=== PATIENT | male | born 1960 | race American Indian/Alaskan Native ===

== ENCOUNTER 2016-04-27 05:54 | Emergency (ER) | payer BC ==
[2016-04-27 07:12] LABS: Basophils % (Auto) 0.7 % (0.0-1.8); Hematocrit 39.8 % (35.5-45.6); Hemoglobin 13.2 gm/dl (11.8-15.2); Mean Corpuscular HGB Conc 33 % (32-34); Mean Corpuscular Hemoglobin 28 pg (28-32); Mean Corpuscular Volume 84 fl (84-94); Platelet Count 328 K/mm3 (140-440); Red Blood Count 4.77 M/mm3 (3.65-5.03); Red Cell Distribution Width 14.2 % (13.2-15.2); White Blood Count 6.5 K/mm3 (4.5-11.0)
[2016-04-27 07:25] LABS: Anion Gap 18 mmol/L; BUN/Creatinine Ratio 13.75; Blood Urea Nitrogen 11 mg/dL (9-20); Calcium 10.2 mg/dL (8.4-10.2); Carbon Dioxide 23 mmol/L (22-30); Chloride 105.4 mmol/L (98-107); Glucose 118 mg/dL (75-100); Potassium 3.9 mmol/L (3.6-5.0); Sodium 142 mmol/L (137-145)
[2016-04-27] MEDS ORDERED: NACL 0.9% 1000 ML 1,000 ML IV ONE (07:26)
[2016-04-27] MEDS ORDERED: CARDIZEM IV ONE (07:26)
--- NOTE | 2016-04-27 07:31 | Emergency Department Report ---
ED General Adult HPI - General Chief complaint: Dyspnea/Respdistress Stated complaint: LIANNE Time Seen by Provider: 04/27/16 07:17 Source: patient Mode of arrival: Ambulatory Limitations: No Limitations - History of Present Illness Initial comments: 55-year-old male presents to the emergency department complaining of lightheadedness and shortness of breath. Patient states for the past 2 days he has been having shortness of breath and lightheadedness. Patient describes his lightheadedness as feeling "off". He denies passing out or a spinning sensation. He denies chest pain, nausea, vomiting, or headache. He does state that approximately 10 days ago he had an episode of food poisoning. He reports vomiting multiple times that day. Since that time he states his equilibrium has been off. He does state that this is improving on a daily basis. Patient also reports he was recently diagnosed with an irregular heartbeat. He was prescribed Eliquis, but states he has been out of it for the past 2 weeks. There are no other complaints. -: Gradual, days(s) (2) Consistency: constant Improves with: none Worsens with: none Associated Symptoms: confusion, shortness of breath Treatments Prior to Arrival: none - Related Data Home Medications Medication Instructions Recorded Confirmed Last Taken Apixaban [Eliquis] 5 mg PO BID 04/27/16 04/27/16 Unknown Previous Rx's Medication Instructions Recorded Last Taken Type Metoprolol Tartrate [Lopressor] 50 mg PO BID #60 tablet 04/27/16 Unknown Rx Allergies Allergy/AdvReac Type Severity Reaction Status Date / Time No Known Allergies Allergy Verified 04/27/16 05:57 ED Review of Systems ROS: Stated complaint: LIANNE Other details as noted in HPI Comment: All other systems reviewed and negative Respiratory: shortness of breath Neurological: as per HPI, confusion ED Past Medical Hx - Past Medical History Previous Medical History?: Yes Additional medical history: SARCODOSIS / SLEEP APNEA / IRREGULAR HEART BEAT - Surgical History Past Surgical History?: Yes Additional Surgical History: FEMUR - Family History Family history: no significant - Social History Smoking Status: Never Smoker Substance Use Type: None - Medications Home Medications: Home Medications Medication Instructions Recorded Confirmed Last Taken Type Apixaban [Eliquis] 5 mg PO BID 04/27/16 04/27/16 Unknown History Metoprolol Tartrate [Lopressor] 50 mg PO BID #60 tablet 04/27/16 Unknown Rx ED Physical Exam - General Limitations: No Limitations General appearance: alert, in no apparent distress - Head Head exam: Present: atraumatic, normocephalic - Eye Eye exam: Present: normal appearance, PERRL, EOMI - ENT ENT exam: Present: normal exam, normal orophraynx, mucous membranes moist - Neck Neck exam: Present: normal inspection, full ROM. Absent: tenderness - Respiratory Respiratory exam: Present: normal lung sounds bilaterally. Absent: respiratory distress - Cardiovascular Cardiovascular Exam: Present: tachycardia, irregular rhythm, normal heart sounds - GI/Abdominal GI/Abdominal exam: Present: soft, normal bowel sounds. Absent: distended, tenderness - Extremities Exam Extremities exam: Present: normal inspection, full ROM. Absent: tenderness - Back Exam Back exam: Present: normal inspection, full ROM. Absent: tenderness - Neurological Exam Neurological exam: Present: alert, oriented X3. Absent: motor sensory deficit - Skin Skin exam: Present: warm, dry, intact ED Course Vital Signs 04/27/16 04/27/16 04/27/16 05:57 06:52 07:00 Temperature 98.0 F Pulse Rate 69 124 H 138 H Respiratory 22 20 16 Rate Blood Pressure 152/113 119/90 Blood Pressure [Left] O2 Sat by Pulse 97 96 Oximetry 04/27/16 04/27/16 04/27/16 07:10 07:20 07:30 Temperature Pulse Rate 140 H 140 H 126 H Respiratory 14 13 20 Rate Blood Pressure 126/94 125/82 125/82 Blood Pressure [Left] O2 Sat by Pulse 96 97 97 Oximetry 04/27/16 04/27/16 04/27/16 07:35 07:40 07:51 Temperature Pulse Rate 126 H 115 H 113 H Respiratory 18 17 18 Rate Blood Pressure 132/85 Blood Pressure 132/85 [Left] O2 Sat by Pulse 99 97 96 Oximetry 04/27/16 04/27/16 04/27/16 08:01 08:11 08:21 Temperature Pulse Rate 119 H 116 H 128 H Respiratory 18 17 14 Rate Blood Pressure 134/98 134/98 134/98 Blood Pressure [Left] O2 Sat by Pulse 96 95 97 Oximetry 04/27/16 04/27/16 04/27/16 08:31 08:41 08:51 Temperature Pulse Rate 114 H 115 H 118 H Respiratory 11 L 15 12 Rate Blood Pressure 134/98 134/98 134/98 Blood Pressure [Left] O2 Sat by Pulse 99 95 97 Oximetry 04/27/16 04/27/16 04/27/16 09:00 09:11 09:21 Temperature Pulse Rate 118 H 123 H 114 H Respiratory 11 L 16 13 Rate Blood Pressure 143/96 143/96 143/96 Blood Pressure [Left] O2 Sat by Pulse 96 98 95 Oximetry 04/27/16 04/27/16 04/27/16 09:31 09:32 09:41 Temperature Pulse Rate 124 H 124 H 116 H Respiratory 13 10 L Rate Blood Pressure 143/96 142/98 143/96 Blood Pressure [Left] O2 Sat by Pulse 95 96 Oximetry 04/27/16 04/27/16 04/27/16 09:51 10:00 10:11 Temperature Pulse Rate 120 H 111 H 117 H Respiratory 17 10 L 12 Rate Blood Pressure 143/96 127/102 127/102 Blood Pressure [Left] O2 Sat by Pulse 95 97 97 Oximetry 04/27/16 10:21 Temperature Pulse Rate 109 H Respiratory 10 L Rate Blood Pressure 127/102 Blood Pressure [Left] O2 Sat by Pulse 97 Oximetry ED Medical Decision Making - Lab Data Result diagrams: 04/27/16 06:51 04/27/16 06:51 - EKG Data -: EKG Interpreted by Me EKG shows normal: axis, QRS complexes, ST-T waves Rate: tachycardia - EKG Data When compared to previous EKG there are: previous EKG unavailable Interpretation: other (atrial fibrillation with rapid ventricular response) - Radiology Data Radiology results: image reviewed interpreted by me: Chest x-ray shows no acute cardiopulmonary abnormality. - Medical Decision Making Lab and imaging results reviewed and discussed with the patient. Patient's heart rate has improved markedly with medication. Cardiology has seen and evaluated the patient emergency department. Patient will be discharged home on oral metoprolol to follow-up in their office. - Differential Diagnosis A. fib with RVR, dehydration, electrolyte abnormality, ACS Critical care attestation.: If time is entered above; I have spent that time in minutes in the direct care of this critically ill patient, excluding procedure time. ED Disposition Clinical Impression: Atrial fibrillation with rapid ventricular response Disposition: DISCHARGED TO HOME OR SELFCARE Is pt being admited?: No Condition: Stable Instructions: Atrial Fibrillation (ED) Prescriptions: Metoprolol Tartrate [Lopressor] 50 mg PO BID #60 tablet Referrals: SOFIA SALAZAR MD [Staff Physician] - 05/10/16 Time of Disposition: 10:41
--- NOTE | 2016-04-27 07:46 | Admit Criteria Form ---
Admission Criteria Documentation: ATRIAL FIBRILLATION Clinical Indications for Admission to Inpatient Care (Place 'X' for any and all applicable criteria): Admission indicated for ANY ONE of the following(1)(2)(3)(4)(5) : [ ]I. Myocardial ischemia [X]II. Dyspnea or hypoxemia [ ]III. Hemodynamic instability [ ]IV. Heart failure (e.g., pulmonary edema) (7) [ ]V. New-onset (less than 48 hours) atrial fibrillation with high risk for causing complications secondary to comorbidities (eg, symptomatic heart failure ) [ ]. Altered mental status [ ]VII. Syncope [ ]VIII. Patient has implantable cardioverter defibrillator that has fired more than once within past 24hr or needs immediate adjustment of settings that cannot be done other than in inpatient setting. (8) [ ]IX. Suspected accessory pathway (e.g., Yluej-Hdjzhqkea-Plkwb syndrome) on ECG [ ]X. Recent systemic thromboembolism (eg, stroke) [ ]XI. Medication toxicity (e.g., digitalis) causing arrhythmia(9) [ ]XII. Underlying medical condition that necessitates inpatient care (e.g., thyrotoxicosis, pneumonia) (10) [ ]XIII. Continuous ECG monitoring is required for condition causing arrhythmia (e.g., severe hyperkalemia, hypokalemia, acid-base disturbance).(11)(12)(13) [ ]XIV. Initiation of antiarrhythmic drug therapy is needed in patient at high risk of adverse effects as indicated by ANY ONE of the following: [ ]a) Significant structural heart disease (e.g., reduced ejection fraction, congenital heart disease, valvular heart disease) [ ]b) Prolonged QT interval [ ]c) Underlying sinus node or atrioventricular conduction disturbances [ ]d) Need for treatment with antiarrhythmic drugs that have significant proarrhythmic potential (e.g., dofetilide, sotalol, procainamide) [ ]e) Patient whose sinus rhythm has never been observed on ECG [ ]XV. Intolerable symptoms despite optimal outpatient treatment [ ]XVI. Elective or urgent cardioversion that cannot be performed on outpatient basis or during observation care. [A] (Use also Atrial Fibrillation: Observation Care ) as appropriate.(14) [ ]XVII.Contraindications and/or Inappropriate clinical situations for Observational Care in patients with Atrial Fibrillation, when ANY ONE of the following is required: [ ]a) Patient with High risk of cardiac embolism (e.g, patients with previous cardiac embolism, LVEF < 40%, age >75 and patients with prosthetic valve) 18 [ ]b) Patient with Moderate risk including DM patient, CAD and patient aged 65-75 18 [ ]c) Patient with any change in cardiac biomarker especially troponin should be managed as high risk in an inpatient setting 19 [ ]d) Physician judgement irrespective of ECG and other diagnostic findings 20 [ ]XVIII.General contraindications and/or Inappropriate clinical situations for Observational Care in patients with Atrial Fibrillation, when ANY ONE of the following is required: [ ]a) Prediction of prolongation of LOS based on ANY ONE of the following may be considered as a contraindication for observational care 2, 3, 4, 5, 6, 7, 8, 9, 10, 11 [ ]i) Age > 65 yrs. [ ]ii) Patient arriving by ambulance [ ]iii) Patient with high acuity [ ]iv) Patient requiring vital sign monitoring [ ]v) Patient on IV medication [ ]b) Systolic blood pressures 180mmHg 3,12 [ ]c) Patient with altered mental status including delirium and other alteration of consciousness3 [ ]d) Patient whose discharge disposition will be to a penitentiary home or rehabilitation home should not be managed in Emergency Department Observation Unit. CMS rule requires 3 days hospital stay before such placement.3,13 [ ]e) Patient with failure to thrive due to broad array of etiologies 3,16,17 [ ]f) Inability to ambulate 3,14 Extended stay beyond goal length of stay may be needed for (1)(25)(26): [ ]a) Unstable comorbidities [ ]b) Persistently uncontrolled atrial fibrillation or other arrhythmias [ ]c) Acute thromboembolic event (e.g., stroke, limb ischemia) [ ]d) Need for inpatient attainment of full anticoagulation The original [employer] content created by [employer] has been revised. The portions of the content which have been revised are identified through the use of italic text or in bold, and [employer] has neither reviewed nor approved the modified material. All other unmodified content is copyright [employer]. Please see references footnoted in the original [employer] edition 2016
--- NOTE | 2016-04-27 07:51 | XRay Report ---
ROUTINE CHEST, TWO VIEWS: HISTORY: Shortness of breath. No recent comparison. Mild cardiomegaly and central pulmonary venous congestion are identified. No consolidation, pleural effusion or pneumothorax is appreciated. Mild thoracic spondylosis. IMPRESSION: Mild cardiomegaly and pulmonary venous congestion but no CHF.
[2016-04-27] MEDS ORDERED: LOPRESSOR PO ONE (09:12)
--- NOTE | 2016-04-27 09:14 | Consultation ---
History of Present Illness Consult date: 04/27/16 Requesting physician: JASPREET ARGUELLES Consult reason: atrial fibrillation History of present illness: The patient is a 55 year old male with a history of atrial fibrillation, JOSE who presented with complaints of lightheadedness and shortness of breath ongoing for the past several days. He denies any chest pain, palpitations, nausea, vomiting, diaphoresis or syncope. EKG in the ER showed atrial fibrillation with HR 150s. He states he was diagnosed with atrial fibrillation by Dr. Middleton last month and placed on Eliquis. Per Dr. Middleton's office note, pt. was supposed to have been on cardizem CD 240 mg daily but the patient ever taking anything but Eliquis. He received 10mg IV cardizem in the ER with improvement in his HR and symptoms. Echo done 02/2016 showed mild LVH, EF 25-30% , mild MR. No previous ischemic evaluation. Past History Past Medical History: atrial fib, other (JOSE, obesity) Past Surgical History: Other (femur repair) Social history: . denies: smoking, alcohol abuse, prescription drug abuse, IV drug use Family history: no significant family history Medications and Allergies Allergies Allergy/AdvReac Type Severity Reaction Status Date / Time No Known Allergies Allergy Verified 04/27/16 05:57 Home Medications Medication Instructions Recorded Confirmed Last Taken Type Apixaban [Eliquis] 5 mg PO BID 04/27/16 04/27/16 Unknown History Metoprolol Tartrate [Lopressor] 50 mg PO BID #60 tablet 04/27/16 Unknown Rx Review of Systems Constitutional: no fever, no chills Ears, nose, mouth and throat: no nasal congestion, no nasal discharge, no sinus pressure Cardiovascular: lightheadedness, shortness of breath, no chest pain, no palpitations Respiratory: shortness of breath, no cough, no dyspnea on exertion, no congestion, no wheezing Gastrointestinal: no abdominal pain, no nausea, no vomiting, no diarrhea Genitourinary Male: no dysuria, no hematuria Musculoskeletal: no neck stiffness, no neck pain, no myalgias Integumentary: no rash, no pruritis Neurological: no parathesias, no numbness, no tingling, no headaches Endocrine: no cold intolerance, no heat intolerance Hematologic/Lymphatic: no easy bruising, no easy bleeding Allergic/Immunologic: no urticaria, no wheezing Physical Examination Vital Signs Temp Pulse Resp BP Pulse Ox 98.0 F 69 22 152/113 97 04/27/16 05:57 04/27/16 05:57 04/27/16 05:57 04/27/16 05:57 04/27/16 05:57 General appearance: no acute distress, obese HEENT: Positive: Normocephaly, Mucus Membranes Moist Neck: Positive: neck supple, trachea midline Cardiac: Positive: irregularly irregular, S1/S2 Lungs: Positive: clear to auscultation Neuro: Positive: Grossly Intact Abdomen: Positive: Soft, Active Bowel Sounds. Negative: Tender Skin: Positive: Clear. Negative: Rash Extremities: Absent: edema Results 04/27/16 06:51 04/27/16 06:51 CBC 04/27/16 Range/Units 06:51 WBC 6.5 (4.5-11.0) K/mm3 RBC 4.77 (3.65-5.03) M/mm3 Hgb 13.2 (11.8-15.2) gm/dl Hct 39.8 (35.5-45.6) % Plt Count 328 (140-440) K/mm3 Lymph # 1.4 (1.2-5.4) K/mm3 [place] # 0.9 H (0.0-0.8) K/mm3 Eos # 0.1 (0.0-0.4) K/mm3 Baso # 0.0 (0.0-0.1) K/mm3 Comprehensive Metabolic Panel 04/27/16 Range/Units 06:51 Sodium 142 (137-145) mmol/L Potassium 3.9 (3.6-5.0) mmol/L Chloride 105.4 (98-107) mmol/L Carbon Dioxide 23 (22-30) mmol/L BUN 11 (9-20) mg/dL Creatinine 0.8 (0.8-1.5) mg/dL Glucose 118 H (75-100) mg/dL Calcium 10.2 (8.4-10.2) mg/dL - Imaging and Cardiology Echo: report reviewed (02/2016: mild LVH, EF 25-30%, mild MR) EKG: image reviewed EKG interpretations - Telemetry EKG Rhythm: Atrial Fibrillation - EKG Supraventricular dysrhythmia: atrial fibrillation Assessment and Plan Atrial fibrillation with RVR-->currently controlled ventricular rate electrolytes, TSH WNL Echo 02/2016: mild LVH, EF 25-30%, mild MR continue Eliquis 5mg PO BID initiate metoprolol 50mg BID Cardiomyopathy EF 25-30%-->new diagnosis currently compensated ?possibly tachycardia induced initiate metoprolol consider starting ACEI/entresto as an OP JOSE Obesity HR and symptoms improved with PO metoprolol 50mg. D/c home on metoprolol 50mg BID and Eliquis 5mg BID. Follow up with Dr. Middleton in the [place] office on 05/10/16 at 10:45 am. The patient has been seen in conjunction with Dr. Hoyt who agrees with the assessment and plan of care.
[2016-04-27] MEDS ORDERED: ELIQUIS PO SCH (10:00)
[2016-04-27 11:12] VITALS: BP 142/100
== END 2016-04-27 11:11 | disposition home or self-care (01) ==
LOC: ED 05:54
DX: I48.91 Unspecified atrial fibrillation (principal); R41.0 Disorientation, unspecified; Z79.01 Long term (current) use of anticoagulants
CPT/HCPCS: 36415; 71020; 80048; 83735; 84443; 84484; 85025; 93005; 93010; 96361; 96374; 99284; J7030

== ENCOUNTER 2016-05-05 23:12 | Inpatient (IN) | payer BC ==
[2016-05-06 00:10] LABS: Basophils % (Auto) 0.7 % (0.0-1.8); Hematocrit 42.6 % (35.5-45.6); Hemoglobin 13.9 gm/dl (11.8-15.2); Mean Corpuscular HGB Conc 33 % (32-34); Mean Corpuscular Hemoglobin 28 pg (28-32); Mean Corpuscular Volume 86 fl (84-94); Platelet Count 338 K/mm3 (140-440); Red Blood Count 4.94 M/mm3 (3.65-5.03); White Blood Count 7.6 K/mm3 (4.5-11.0)
[2016-05-06] MEDS ORDERED: CARDIZEM IV ONE (00:45)
[2016-05-06 00:49] LABS: Anion Gap 20 mmol/L; Blood Urea Nitrogen 17 mg/dL (9-20); Calcium 9.7 mg/dL (8.4-10.2); Carbon Dioxide 22 mmol/L (22-30); Chloride 102.2 mmol/L (98-107); Glucose 119 mg/dL (75-100); Potassium 4.1 mmol/L (3.6-5.0); Sodium 140 mmol/L (137-145)
--- NOTE | 2016-05-06 00:50 | Emergency Department Report ---
ED Shortness of Breath HPI - General Chief Complaint: Dyspnea/Respdistress Stated Complaint: PROBLEM BREATHING Time Seen by Provider: 05/05/16 23:59 Source: patient Mode of arrival: Ambulatory Limitations: No Limitations - History of Present Illness Initial Comments: 55-year-old male presents to the emergency department complaining of shortness of breath. Patient states he's been having difficulty breathing for the past 3 weeks with cough for the past 2 days. Cough has been nonproductive. He denies chest pain or other symptoms. Patient states he has been unable to sleep at night over the past couple of days. Patient has been seen in the emergency department to previous times this month for same complaints. On his initial visit, the patient was started on 50 mg of metoprolol twice a day. At his second visit, his dose was increased to 100 mg twice a day. He is scheduled to see cardiology on 05/10/2016. MD Complaint: shortness of breath, cough -: Gradual, week(s) (3) Pain Scale: 0 Consistency: constant Improves With: nothing Worsens With: nothing Known History Of: other (sarcoidosis, sleep apnea) Associated Symptoms: denies other symptoms Treatments Prior to Arrival: none - Related Data Home Medications Medication Instructions Recorded Confirmed Last Taken Apixaban [Eliquis] 5 mg PO BID 04/27/16 04/27/16 Unknown Previous Rx's Medication Instructions Recorded Last Taken Type Metoprolol Tartrate [Lopressor] 50 mg PO BID #60 tablet 04/27/16 Unknown Rx Metoprolol [Lopressor TAB] 100 mg PO BID #60 tablet 05/02/16 Unknown Rx Allergies Allergy/AdvReac Type Severity Reaction Status Date / Time No Known Allergies Allergy Verified 05/02/16 11:21 ED Review of Systems ROS: Stated complaint: PROBLEM BREATHING Other details as noted in HPI Comment: All other systems reviewed and negative Respiratory: cough, shortness of breath ED Past Medical Hx - Past Medical History Previous Medical History?: Yes Additional medical history: SARCOIDOSIS / SLEEP APNEA / ATRIAL FIB - Surgical History Past Surgical History?: Yes Additional Surgical History: FEMUR BILATERAL - Family History Family history: no significant - Social History Smoking Status: Never Smoker Substance Use Type: None - Medications Home Medications: Home Medications Medication Instructions Recorded Confirmed Last Taken Type Apixaban [Eliquis] 5 mg PO BID 04/27/16 04/27/16 Unknown History Metoprolol Tartrate [Lopressor] 50 mg PO BID #60 tablet 04/27/16 Unknown Rx Metoprolol [Lopressor TAB] 100 mg PO BID #60 tablet 05/02/16 Unknown Rx ED Physical Exam - General Limitations: No Limitations General appearance: alert, in no apparent distress - Head Head exam: Present: atraumatic, normocephalic - Eye Eye exam: Present: normal appearance, PERRL, EOMI - ENT ENT exam: Present: normal exam, normal orophraynx, mucous membranes moist - Neck Neck exam: Present: normal inspection, full ROM. Absent: tenderness - Respiratory Respiratory exam: Present: normal lung sounds bilaterally. Absent: respiratory distress - Cardiovascular Cardiovascular Exam: Present: tachycardia, irregular rhythm, normal heart sounds - GI/Abdominal GI/Abdominal exam: Present: soft, normal bowel sounds. Absent: distended, tenderness - Extremities Exam Extremities exam: Present: normal inspection, full ROM. Absent: tenderness - Back Exam Back exam: Present: normal inspection, full ROM. Absent: tenderness - Neurological Exam Neurological exam: Present: alert, oriented X3. Absent: motor sensory deficit - Skin Skin exam: Present: warm, intact, diaphoretic ED Course Vital Signs 05/05/16 05/05/16 05/06/16 23:22 23:52 01:08 Temperature 98.1 F 97.9 F Pulse Rate 74 138 H 127 H Respiratory 30 H 20 Rate Blood Pressure 148/100 Blood Pressure 153/115 145/107 [Right] O2 Sat by Pulse 97 92 Oximetry ED Medical Decision Making - Lab Data Result diagrams: 05/05/16 00:00 05/05/16 00:00 - EKG Data -: EKG Interpreted by Me EKG shows normal: axis, intervals, QRS complexes, ST-T waves Rate: tachycardia - EKG Data When compared to previous EKG there are: no significant change Interpretation: unchanged when compared t (05/02/2016), other (atrial fibrillation with rapid ventricular response) - Radiology Data Radiology results: image reviewed interpreted by me: Chest x-ray shows slightly increased vascular markings compared to previous. No pleural effusions noted. - Medical Decision Making Lab and imaging results reviewed and discussed with the patient. Patient's heart rate has improved into the low 90s following IV diltiazem. Patient has also been given 40 mg of IV Lasix. I have spoken with Dr. Walker, cardiology. Patient is to be admitted by the hospitalist. - Differential Diagnosis atrial fibrillation with RVR, CHF Critical care attestation.: If time is entered above; I have spent that time in minutes in the direct care of this critically ill patient, excluding procedure time. ED Disposition Clinical Impression: Atrial fibrillation with rapid ventricular response CHF (congestive heart failure) Qualifiers: Congestive heart failure type: systolic Congestive heart failure chronicity: acute on chronic Qualified Code(s): I50.23 - Acute on chronic systolic ( congestive) heart failure Disposition: OP ADMITTED IP TO THIS HOSP Is pt being admited?: Yes Condition: Stable Referrals: SOFIA SALAZAR MD [Primary Care Provider] - 3-5 Days Time of Disposition: 01:24
[2016-05-06] MEDS ORDERED: LASIX IV ONE (01:05)
--- NOTE | 2016-05-06 01:30 | History and Physical Report ---
History of Present Illness Chief complaint: I cant breathe History of present illness: 55 YO Male with Metabolic Syndrome, Obesity, JOSE, Atrial Fib with RVR, Sarcoidosis, presents to ED for evaluation. Pt complains of cough, and shortness of breath. Pt states that he has been experiencing symptoms for the past 3 weeks, but symptoms have worsened over the past two days. Pt acknowledges orthopnea, PND, bilateral leg swelling. Pt denies fever, chills, CP , Palpitations, NVD, Recent ill contacts. Pt has been evaluated in ED for similar symptoms twice in the recent past. Past History Past Medical History: other (Atrial Fib, JOES, Metabolic Syndrome, Sarcoidism, ) Past Surgical History: Other (Bilateral Femur) Social history: , lives with family. denies: smoking, alcohol abuse, prescription drug abuse Family history: diabetes, hypertension Medications and Allergies Allergies Allergy/AdvReac Type Severity Reaction Status Date / Time No Known Allergies Allergy Verified 05/02/16 11:21 Home Medications Medication Instructions Recorded Confirmed Last Taken Type Apixaban [Eliquis] 5 mg PO BID 04/27/16 04/27/16 Unknown History Metoprolol Tartrate [Lopressor] 50 mg PO BID #60 tablet 04/27/16 Unknown Rx Metoprolol [Lopressor TAB] 100 mg PO BID #60 tablet 05/02/16 Unknown Rx Review of Systems All systems: negative Cardiovascular: chest pain Exam - Constitutional Vitals: Temp Pulse Resp BP Pulse Ox 97.9 F 88 25 H 126/86 94 05/05/16 23:52 05/06/16 01:15 05/06/16 01:15 05/06/16 01:15 05/06/16 01:15 General appearance: Present: mild distress - EENT Eyes: Present: PERRL ENT: hearing intact, clear oral mucosa - Neck Neck: Present: supple, normal ROM - Respiratory Respiratory effort: normal Respiratory: bilateral: diminished - Cardiovascular Heart Sounds: Present: S1 & S2. Absent: rub, click - Extremities Extremities: pulses symmetrical, No edema Extremity abnormal: edema Peripheral Pulses: within normal limits - Abdominal General gastrointestinal: Present: soft, non-tender, non-distended, normal bowel sounds Male genitourinary: Present: normal - Integumentary Integumentary: Present: clear, warm, dry - Musculoskeletal Musculoskeletal: gait normal, strength equal bilaterally - Psychiatric Psychiatric: appropriate mood/affect, intact judgment & insight - Neurologic Neurologic: CNII-XII intact, moves all extremities Results - Labs CBC & Chem 7: 05/05/16 00:00 05/05/16 00:00 Labs: Abnormal lab results 05/05/16 05/05/16 05/05/16 Range/Units 00:00 00:00 00:00 [place] % (Auto) 12.9 H (0.0-7.3) % [place] # 1.0 H (0.0-0.8) K/mm3 Glucose 119 H (75-100) mg/dL NT-Pro-B Natriuret Pep 4958 H (0-900) pg/mL Assessment and Plan - Patient Problems (1) CHF (congestive heart failure) Current Visit: Yes Status: Acute Qualifiers: Congestive heart failure type: systolic Congestive heart failure chronicity : acute on chronic Qualified Code(s): I50.23 - Acute on chronic systolic ( congestive) heart failure Plan to address problem: Cardiology consulted: Echo, serial cardiac enzymes, ekg, telemetry, fluid restriction, uop q shift, low sodium diet, (2) Metabolic syndrome Current Visit: Yes Status: Acute Plan to address problem: Pt counseled, (3) Acute respiratory failure Current Visit: Yes Status: Acute Qualifiers: Respiratory failure complication: R Plan to address problem: supplemental oxygen, nebs, NIPPV as clinically indicated, supportive care. (4) Atrial fibrillation with rapid ventricular response Current Visit: Yes Status: Acute Plan to address problem: Cardizem for rate control, supportive care, telemetry monitoring, therapeutic anticoagulation (5) DVT prophylaxis Current Visit: Yes Status: Acute
--- NOTE | 2016-05-06 01:34 | XRay Report ---
FINAL REPORT PROCEDURE: XR CHEST ROUTINE 2V TECHNIQUE: Chest radiograph anteroposterior view. CPT 13892 HISTORY: SOB, send for report COMPARISON: No prior studies are available for comparison. FINDINGS: Heart: Heart size is slightly prominent. Mediastinum/Vessels: Normal. Lungs/Pleural space: Mild vascular congestion. Slight bilateral lower lung atelectasis. No effusion or pneumothorax. Bony thorax: No acute osseous abnormality. Life support devices: None. IMPRESSION: Mild vascular congestion with slight bilateral lower lung atelectasis..
--- NOTE | 2016-05-06 02:00 | Admit Criteria Form ---
Admission Criteria Documentation: HEART FAILURE: COMMON COMPLICATIONS Clinical Indications for Inpatient Care (Place 'X' for any and all applicable criteria): Ongoing inpatient care may be indicated for heart failure with ANY ONE of the following (1)(2)(3)(4)(5): [ ]I. Ongoing need for care for primary condition requiring frequent therapy adjustments because of changes in cardiac function (eg, drug dosage changes for drugs that are renally metabolized) [ ]II. New-onset heart failure [ ]III. Heart failure with decreased urine output not responsive to attempts to optimize volume status [ ]IV. Acute cardiac ischemia causing or associated with failure [X ]V. Complications of heart failure, including ANY ONE of the following: [ ]a) Pericardial effusion [ ]b) Symptomatic pleural effusion [ ]c) O2 saturation <90% or PO2 < 60 mm Hg (8.0 kPa) on room air or require baseline supplemental O2 [ ]d) Tachypnea [ X]e) Dyspnea [ ]f) Syncope [ ]g) Change in mental status [ ]h) Acute renal insufficiency that is severe (reduction of more than 50% in estimated glomerular filtration rate from baseline) or progressive reduction of more than 25% in estimated glomerular filtration rate from baseline, with creatinine continuing to rise) [ ]i) Hemodynamic instability [ ]j) Anasarca [ ]k) Clinically significant metabolic abnormalities due to heart failure (eg, new-onset metabolic acidosis) Extended stay beyond goal length of stay for primary condition may be needed until ALL of the following are present(1)(3): [ ]a) Stable and effective diuretic regimen established (or patient on stable dialysis regimen if in chronic renal failure) [ ]b) Breathing comfortably at rest [ ]c) Saturation of arterial oxygen greater than 90% or at acceptable baseline [ ]d) Pulmonary edema absent or improved [ ]e) Hemodynamic stability [ ]f) Volume status acceptable on oral medication [ ]g) Peripheral or sacral edema absent or improved [ ]h) Renal function stable and manageable at a lower level of care [ ]i) Complications (eg, pleural effusion) resolved or manageable at a lower level of care [ ]j) Patient or caregiver has received written discharge instructions or educational material addressing activity level, diet, discharge medications, follow-up appointment, weight monitoring, and what to do if symptoms worsen The original [employer] content created by [employer] has been revised. The portions of the content which have been revised are identified through the use of italic text or in bold, and [facility] has neither reviewed nor approved the modified material.All other unmodified content is copyright [facility]. Please see references footnoted in the original [facility] edition 2016 Admission Criteria Met: Yes
[2016-05-06] MEDS ORDERED: ZOFRAN IV PRN (02:09)
[2016-05-06] MEDS ORDERED: PERCOCET 5/325 PO PRN (02:09)
[2016-05-06] MEDS ORDERED: DULCOLAX PR PRN (02:09)
[2016-05-06] MEDS ORDERED: TYLENOL PO PRN (02:09)
[2016-05-06] MEDS ORDERED: MILK OF MAGNESIA PO PRN (02:09)
[2016-05-06] MEDS ORDERED: SODIUM CHLORIDE FLUSH SYRINGE 10 ML IV PRN (02:15)
[2016-05-06 02:54] LABS: Creatine Kinase MB 2.4 ng/mL (0.0-4.0)
[2016-05-06 02:55] LABS: Creatine Kinase 62 units/L (55-170)
[2016-05-06 07:14] LABS: Creatine Kinase MB 2.3 ng/mL (0.0-4.0)
[2016-05-06 07:17] LABS: Creatine Kinase 59 units/L (55-170)
[2016-05-06 09:21] LABS: Creatine Kinase MB 2.3 ng/mL (0.0-4.0)
[2016-05-06 09:22] LABS: Creatine Kinase 53 units/L (55-170)
[2016-05-06] MEDS: ELIQUIS PO SCH ×2 (09:34→21:41)
[2016-05-06] MEDS: LOPRESSOR PO SCH ×2 (09:34→21:41)
--- NOTE | 2016-05-06 10:32 | Progress Note ---
Assessment and Plan This is a pleasant 55yo WM: Atrial fibrillation with RVR-->currently controlled ventricular rate electrolytes, TSH WNL Echo 02/2016: mild LVH, EF 25-30%, mild MR continue Eliquis 5mg PO BID cont bb add low dose cardizem Cardiomyopathy EF 25-30%-->new diagnosis currently compensated ?possibly tachycardia induced add aldactone consider adding adelina in am if hr better and bp will tolerate JOSE Obesity Subjective Date of service: 05/06/16 Interval history: pt feels better very anxious about his overall condition no cp and sob is better Objective Vital Signs Temp Pulse Pulse Pulse Resp BP BP 05/06/16 09:34 143 H 138/98 05/06/16 09:25 97.7 F 72 20 05/06/16 06:27 118 H 05/06/16 05:30 97.6 F 76 22 146/80 05/06/16 04:45 05/06/16 04:00 22 05/06/16 03:27 111 H 25 H 05/06/16 02:10 26 H BP BP Pulse Ox 05/06/16 09:34 05/06/16 09:25 138/93 94 05/06/16 06:27 05/06/16 05:30 96 05/06/16 04:45 96 05/06/16 04:00 94 05/06/16 03:27 138/96 95 05/06/16 02:10 94 - Labs and Meds Cardiac Enzymes 05/06/16 05/06/16 05/06/16 Range/Units 02:18 05:26 08:26 Total Creatine Kinase 62 59 53 L (55-170) units/L CK-MB (CK-2) 2.4 2.3 2.3 (0.0-4.0) ng/mL CK-MB (CK-2) Rel Index 3.8 3.8 4.3 H (0-4) Troponin T < 0.010 < 0.010 < 0.010 (0.00-0.029) ng/mL
[2016-05-06] MEDS: ALDACTONE PO SCH (12:18)
[2016-05-06] MEDS: CARDIZEM PO SCH ×3 (12:21→23:34)
--- NOTE | 2016-05-06 16:09 | Progress Note ---
Assessment and Plan Assessment and plan: A. fib with RVR - Currently rate controlled with beta surya and Cardizem - Continue eliquis - We'll follow electrolytes - We will monitor on telemetry Acute systolic congestive heart failure Ejection fraction 25-30% - New Onset - continue beta surya, spironolactone added - We'll add CARLOTTA inhibitor tomorrow - Patient didn't have any symptoms - Cardiology consult appreciated Disposition - We'll be discharged tomorrow History Interval history: Patient was seen and evaluated this morning, no shortness of breath, no chest pain. Hospitalist Physical - Physical exam Narrative exam: Not in cardiopulmonary distress. The patient appeared well nourished and normally developed. Vital signs as documented. Head exam is unremarkable. No scleral icterus . Neck is without jugular venous distension, thyromegaly, or carotid bruits. Lungs are clear to auscultation. Cardiac exam reveals irregular rate. Abdominal exam reveals normal bowel sounds, no masses, no organomegaly and no aortic enlargement. Extremities are nonedematous and both femoral and pedal pulses are normal. 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 No focal weakness. - Constitutional Vitals: Temp Pulse Resp BP Pulse Ox 97.7 F 111 H 20 147/110 99 05/06/16 09:25 05/06/16 12:21 05/06/16 09:25 05/06/16 12:21 05/06/16 10:00 General appearance: Present: mild distress Results - Labs CBC & Chem 7: 05/05/16 00:00 05/05/16 00:00 Labs: Laboratory Last Values WBC 7.6 K/mm3 (4.5-11.0) 05/05/16 00:00 RBC 4.94 M/mm3 (3.65-5.03) 05/05/16 00:00 Hgb 13.9 gm/dl (11.8-15.2) 05/05/16 00:00 Hct 42.6 % (35.5-45.6) 05/05/16 00:00 MCV 86 fl (84-94) 05/05/16 00:00 MCH 28 pg (28-32) 05/05/16 00:00 MCHC 33 % (32-34) 05/05/16 00:00 RDW 15.0 % (13.2-15.2) 05/05/16 00:00 Plt Count 338 K/mm3 (140-440) 05/05/16 00:00 Lymph % (Auto) 27.1 % (13.4-35.0) 05/05/16 00:00 [place] % (Auto) 12.9 % (0.0-7.3) H 05/05/16 00:00 Eos % (Auto) 1.0 % (0.0-4.3) 05/05/16 00:00 Baso % (Auto) 0.7 % (0.0-1.8) 05/05/16 00:00 Lymph # 2.0 K/mm3 (1.2-5.4) 05/05/16 00:00 [place] # 1.0 K/mm3 (0.0-0.8) H 05/05/16 00:00 Eos # 0.1 K/mm3 (0.0-0.4) 05/05/16 00:00 Baso # 0.1 K/mm3 (0.0-0.1) 05/05/16 00:00 Seg Neutrophils % 58.3 % (40.0-70.0) 05/05/16 00:00 Seg Neutrophils # 4.4 K/mm3 (1.8-7.7) 05/05/16 00:00 D-Dimer 257.83 ng/mlDDU (0-234) H 05/06/16 02:08 Sodium 140 mmol/L (137-145) 05/05/16 00:00 Potassium 4.1 mmol/L (3.6-5.0) 05/05/16 00:00 Chloride 102.2 mmol/L (98-107) 05/05/16 00:00 Carbon Dioxide 22 mmol/L (22-30) 05/05/16 00:00 Anion Gap 20 mmol/L 05/05/16 00:00 BUN 17 mg/dL (9-20) 05/05/16 00:00 Creatinine 1.0 mg/dL (0.8-1.5) 05/05/16 00:00 Estimated GFR > 60 ml/min 05/05/16 00:00 BUN/Creatinine Ratio 17.00 % 05/05/16 00:00 Glucose 119 mg/dL (75-100) H 05/05/16 00:00 Calcium 9.7 mg/dL (8.4-10.2) 05/05/16 00:00 Total Creatine Kinase 53 units/L (55-170) L 05/06/16 08:26 CK-MB (CK-2) 2.3 ng/mL (0.0-4.0) 05/06/16 08:26 CK-MB (CK-2) Rel Index 4.3 (0-4) H 05/06/16 08:26 Troponin T < 0.010 ng/mL (0.00-0.029) 05/06/16 08:26 NT-Pro-B Natriuret Pep 4958 pg/mL (0-900) H 05/05/16 00:00
[2016-05-07] MEDS: CARDIZEM PO SCH ×2 (06:25→11:45)
[2016-05-07 08:14] LABS: Anion Gap 17 mmol/L; BUN/Creatinine Ratio 14.44; Blood Urea Nitrogen 13 mg/dL (9-20); Calcium 10.2 mg/dL (8.4-10.2); Carbon Dioxide 26 mmol/L (22-30); Chloride 100.4 mmol/L (98-107); Glucose 106 mg/dL (75-100); Potassium 4.1 mmol/L (3.6-5.0); Sodium 139 mmol/L (137-145)
--- NOTE | 2016-05-07 09:05 | Discharge Summary ---
Providers - Providers Date of Admission: 05/06/16 02:09 Date of discharge: 05/07/16 Attending physician: PARVEEN METCALF MD 05/06/16 Consult to Cardiac Rehabilitation [CONS] Routine Reason For Exam: Phase I Primary care physician: SOFIA MIDDLETON Hospitalization Reason for admission: Acute systolic CHF Condition: Stable Hospital course: 55 YO Male with Metabolic Syndrome, Obesity, JOSE, Atrial Fib with RVR, Sarcoidosis, presented to ED for evaluation. Pt complainsed of cough, and shortness of breath. Pt stated that he has been experiencing symptoms for the past 3 weeks, but symptoms have worsened over the past two days. Pt acknowledged orthopnea, PND, bilateral leg swelling. Patient was admitted to the floor and [facility] was consulted. The patient has recent echo done with Dr Middleton and showed thatthe patient has acute systolic CHF with EF of 25-35%. patient was was on metoprolol and Eliquis as an outpatient. We continued these meds and added Cardizem for rate control and ACEI, spironolctone for heart failure and discharged home with follow up as scheduled with his finding fastener Dr Middleton. Patient has been worried sbout his conditions and asked me the same questions again and again and I took my time and explained everything. patient was appreciative. patient didn't have any SOB , leg swelling at the time of discharge. patient was stable at the time of discharge. Disposition: DISCHARGED TO HOME OR SELFCARE Time spent for discharge: 31 minutes - Discharge Diagnoses (1) Acute respiratory failure Status: Acute Qualifiers: Respiratory failure complication: R (2) Atrial fibrillation with rapid ventricular response Status: Acute (3) CHF (congestive heart failure) Status: Acute Qualifiers: Congestive heart failure type: systolic Congestive heart failure chronicity : acute on chronic Qualified Code(s): I50.23 - Acute on chronic systolic ( congestive) heart failure (4) Metabolic syndrome Status: Acute Core Measure Documentation - Palliative Care Palliative Care/ Comfort Measures: Not Applicable - Core Measures Any of the following diagnoses?: none - Heart Failure Discharge Requirements CARLOTTA/ARB for LVSD if EF <40%: Yes Beta surya at discharge: Yes Exam - Physical Exam Narrative exam: Not in cardiopulmonary distress. The patient appeared well nourished and normally developed. Vital signs as documented. Head exam is unremarkable. No scleral icterus . Neck is without jugular venous distension, thyromegaly, or carotid bruits. Lungs are clear to auscultation. Cardiac exam reveals irregular rate. Abdominal exam reveals normal bowel sounds, no masses, no organomegaly and no aortic enlargement. Extremities are nonedematous and both femoral and pedal pulses are normal. 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 No focal weakness. - Constitutional Vitals: Temp Pulse Resp BP Pulse Ox 97.5 F L 67 20 135/101 97 05/07/16 08:00 05/07/16 08:00 05/07/16 08:00 05/07/16 08:00 05/07/16 08:00 Plan Activity: no restrictions Weight Bearing Status: Full Weight Bearing Diet: low cholesterol, low salt Follow up with: SOFIA MIDDLETON MD [Primary Care Provider] - 7 Days Forms: Work/School Release Form Prescriptions: Diltiazem [Cardizem] 30 mg PO Q6H #120 tablet Lisinopril [Zestril TAB] 10 mg PO QDAY #30 tablet Spironolactone [Aldactone] 25 mg PO QDAY #30 tablet
[2016-05-07] MEDS ORDERED: ZESTRIL PO SCH (10:00)
[2016-05-07] MEDS: ALDACTONE PO SCH (10:28)
[2016-05-07] MEDS: LOPRESSOR PO SCH (10:32)
[2016-05-07] MEDS: ELIQUIS PO SCH (10:32)
[2016-05-07 13:48] VITALS: BP 133/85
== END 2016-05-07 13:35 | disposition home or self-care (01) | DRG 291 ==
LOC: ED 23:12 → 4A 23:45 → UNDOADMIN 05-06 02:09 → 4A 05-06 02:09 → UNDODISIN 05-07 13:35
PROVIDERS: ADMIT Internal Medicine; ATTEND Internal Medicine
DX: I50.23 Acute on chronic systolic (congestive) heart failure (principal); J96.00 Acute respiratory failure, unspecified whether with hypoxia or hypercapnia; I42.9 Cardiomyopathy, unspecified; I48.91 Unspecified atrial fibrillation; D86.9 Sarcoidosis, unspecified; E88.81 Metabolic syndrome and other insulin resistance; G47.33 Obstructive sleep apnea (adult) (pediatric); E66.9 Obesity, unspecified; Z68.39 Body mass index [BMI] 39.0-39.9, adult
CPT/HCPCS: 36415; 71020; 80048; 82550; 82553; 83880; 84484; 85025; 85379; 93005; 93010; 94660; 94760; 96374; 96375; J1940

== ENCOUNTER 2016-06-14 06:27 | Day surgery (SDC) | payer BC ==
[2016-06-14] MEDS ORDERED: NACL 0.9% 500 ML 500 ML IV SCH (07:00)
[2016-06-14] MEDS ORDERED: HURRICAINE ONE 20% TOPICAL SPRAY MM NR (07:00)
[2016-06-14 07:05] LABS: Basophils % (Auto) 0.6 % (0.0-1.8); Eosinophils % (Auto) 1.6 % (0.0-4.3); Hematocrit 40.9 % (35.5-45.6); Hemoglobin 13.3 gm/dl (11.8-15.2); Mean Corpuscular HGB Conc 33 % (32-34); Mean Corpuscular Hemoglobin 28 pg (28-32); Mean Corpuscular Volume 85 fl (84-94); Platelet Count 294 K/mm3 (140-440); Red Blood Count 4.78 M/mm3 (3.65-5.03); Red Cell Distribution Width 15.5 % (13.2-15.2); White Blood Count 5.6 K/mm3 (4.5-11.0)
[2016-06-14 07:20] LABS: INR 1.14 (0.87-1.13)
[2016-06-14 07:25] LABS: Anion Gap 16 mmol/L; Blood Urea Nitrogen 20 mg/dL (9-20); Calcium 10.2 mg/dL (8.4-10.2); Carbon Dioxide 24 mmol/L (22-30); Glucose 158 mg/dL (75-100); Potassium 4.6 mmol/L (3.6-5.0); Sodium 140 mmol/L (137-145)
[2016-06-14] MEDS ORDERED: DIPRIVAN 10 MG/ML IV ONE ×2 (08:19)
--- NOTE | 2016-06-14 08:39 | Anesthesia Consultation ---
Anesthesia Consult and Med Hx Date of service: 06/14/16 - Airway Anesthetic Teeth Evaluation: Good ROM Head & Neck: Adequate Mental/Hyoid Distance: Adequate Mallampati Class: Class III Intubation Access Assessment: Possibly Difficult - Pulmonary Exam CTA: Yes - Pre-Operative Health Status ASA Pre-Surgery Classification: ASA4 Proposed Anesthetic Plan: MAC - Pre-Anesthesia Comment Pre-Anesthesia Comments: Patient has a hx of Afib, cardiomyopathy, systolic heart failure. Echo from 03/14 showed EF 25-30%. Per recent Holter monitor, HR as high as 190, isolated PVC, APC. - Pulmonary Hx Smoking: No Hx Asthma: No COPD: No Hx Pneumonia: No Hx Sleep Apnea: Yes (CPAP use nightly) - Cardiovascular System Hx Hypertension: Yes Hx Heart Attack/AMI: No Hx Cardia Arrhythmia: Yes (Afib, palpitation) Hx Pacemaker: No Hx Internal Defibrillator: No - Central Nervous System Hx Seizures: No CVA: No Hx Psychiatric Problems: No - Endocrine Hx Renal Disease: No Hx Liver Disease: No Hx Non-Insulin Dependent Diabetes: No - Other Systems Hx Cancer: No Hx Obesity: Yes - Additional Comments Anesthesia Medical History Comments: NAC
--- NOTE | 2016-06-14 08:40 | Anesthesia Day of Surgery ---
Anesthesia Day of Surgery - Day of Surgery Patient Examined: Yes Patient H&P Reviewed: Yes Patient is NPO: Yes Beta Blockers: Yes Cardiac Clearance: No Pulmonary Clearance: No
--- NOTE | 2016-06-14 10:51 | Short Stay Summary ---
Short Stay Documentation Date of service: 06/14/16 - History H&P: obtained from office - Allergies and Medications Current Medications: Allergies No Known Allergies Allergy (Verified 05/02/16 11:21) Home Medications Medication Instructions Recorded Confirmed Last Taken Type Apixaban [Eliquis] 5 mg PO BID 04/27/16 06/14/16 06/14/16 History Metoprolol [Lopressor TAB] 100 mg PO BID #60 tablet 05/02/16 06/14/16 06/14/16 Rx Diltiazem [Cardizem] 30 mg PO Q6H #120 tablet 05/07/16 06/14/16 06/14/16 Rx Lisinopril [Zestril TAB] 10 mg PO QDAY #30 tablet 05/07/16 06/14/16 06/14/16 Rx Spironolactone [Aldactone] 25 mg PO QDAY #30 tablet 05/07/16 06/14/16 06/14/16 Rx Active Medications Sodium Chloride (Nacl 0.9% 500 Ml) 500 mls @ 50 mls/hr IV DIRECT IGGY Last Admin: 06/14/16 07:07 Dose: 50 mls/hr - Brief post op/procedure progress note Date of procedure: 06/14/16 Pre-op diagnosis: afib Post-op diagnosis: same Procedure: see report Anesthesia: MAC Estimated blood loss: none Pathology: none - Disposition Condition at discharge: Good Disposition: DISCHARGED TO HOME OR SELFCARE - Discharge Diagnoses (1) Afib Status: Chronic Qualifiers: Atrial fibrillation type: A (2) Hypertension Status: Chronic Qualifiers: Hypertension type: essential hypertension Qualified Code(s): I10 - Essential (primary) hypertension (3) Morbid obesity Status: Chronic Qualifiers: Obesity type: unspecified obesity type Qualified Code(s): E66.01 - Morbid ( severe) obesity due to excess calories (4) CHF (congestive heart failure) Status: Chronic Qualifiers: Congestive heart failure type: systolic Congestive heart failure chronicity : chronic Qualified Code(s): I50.22 - Chronic systolic (congestive) heart failure Short Stay Discharge Plan Activity: advance as tolerated Diet: low fat, low cholesterol, low salt Special Instructions: restrict fluid intake to (one liter) Follow up with: SOFIA SALAZAR MD [Primary Care Provider] - 7 Days
--- NOTE | 2016-06-14 11:44 | Post Anesthesia Evaluation ---
- Post Anesthesia Evaluation Patient Participated: Yes Airway Patent: Yes Stable Respiratory Function: Yes Nausea/Vomiting: No Temp > 96.8F: Yes Pain Manageable: Yes Adequeate Hydration: Yes Anesthesia Complications: No Block Receding Appropriately: Not Applicable Patient on Ventilator: No
[2016-06-14 11:57] VITALS: BP 97/73
[2016-06-14] MEDS ORDERED: ECOTRIN PO SCH (12:00)
[2016-06-14] MEDS ORDERED: AMIDATE IV ONE (13:39)
== END 2016-06-14 12:10 | disposition home or self-care (01) ==
LOC: OPU 06:27 → EDSTATUS 08:30 → OPU 12:10
PROVIDERS: ATTEND Internal Medicine
DX: I48.91 Unspecified atrial fibrillation (principal); I34.0 Nonrheumatic mitral (valve) insufficiency; I11.0 Hypertensive heart disease with heart failure; I50.20 Unspecified systolic (congestive) heart failure; G47.30 Sleep apnea, unspecified; E66.01 Morbid (severe) obesity due to excess calories; Z68.38 Body mass index [BMI] 38.0-38.9, adult
CPT/HCPCS: 36415; 80048; 85025; 85610; 85730; 93312; 93320; 93325; J2704; J7040

== ENCOUNTER 2017-03-06 10:02 | Inpatient (IN) | payer BC ==
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
[2017-03-06] MEDS ORDERED: cefTRIAXone 1 GM in NACL 0.9% 20 ML IV ONE (12:00)
[2017-03-06 16:56] LABS: Basophils % (Auto) 0.8 % (0.0-1.8); Eosinophils # (Auto) 0.1 K/mm3 (0.0-0.4); Eosinophils % (Auto) 0.9 % (0.0-4.3); Hematocrit 39.7 % (35.5-45.6); Hemoglobin 13.5 gm/dl (11.8-15.2); Lymphocytes # (Auto) 2.2 K/mm3 (1.2-5.4); Lymphocytes % (Auto) 37.9 % (13.4-35.0); Mean Corpuscular HGB Conc 34 % (32-34); Mean Corpuscular Hemoglobin 30 pg (28-32); Mean Corpuscular Volume 89 fl (84-94); Monocytes # (Auto) 0.8 K/mm3 (0.0-0.8); Monocytes % (Auto) 13.2 % (0.0-7.3); Platelet Count 366 K/mm3 (140-440); Red Blood Count 4.47 M/mm3 (3.65-5.03); Red Cell Distribution Width 12.9 % (13.2-15.2)
[2017-03-06 17:08] LABS: Bilirubin,Urine NEG (Negative); Blood,Urine NEG (Negative); Color,Urine Yellow (Yellow); Mucus,Urine FEW /HPF; Nitrite,Urine NEG (Negative); Protein,Urine <15 mg/dL mg/dL (Negative)
[2017-03-06 17:08] LABS: Alanine Aminotransferase 10 units/L (7-56); Albumin 3.9 g/dL (3.9-5); BUN/Creatinine Ratio 19; Blood Urea Nitrogen 13 mg/dL (9-20); Hemolysis Index 8
[2017-03-07] MEDS ORDERED: PERCOCET 5/325 PO PRN (07:55)
[2017-03-07] MEDS ORDERED: VANCOMYCIN/NS 1 GM/250 ML 1 GM/250 ML BAG IV SCH (08:00)
[2017-03-07] MEDS ORDERED: ZOSYN/NS 3.375GM/50ML 3.375 GM/50 ML BAG IV SCH (08:00)
[2017-03-07] MEDS: CARDIZEM PO SCH ×3 (08:50→17:46)
[2017-03-07] MEDS ORDERED: VANCOMYCIN 2,000 MG in NACL 0.9% 500 ML 500 ML IV ONE (10:00)
[2017-03-07] MEDS: ZOSYN/NS 4.5GM/100ML 4.5 GM/100 ML VIAL IV SCH ×3 (10:46→21:17)
[2017-03-07] MEDS: ELIQUIS PO SCH (10:51)
[2017-03-07] MEDS ORDERED: Fluarix Quad 2017-2018(36 MOS+ IM ONE (12:00)
[2017-03-07] MEDS ORDERED: ROCEPHIN/NS 1 GM/50 ML 1 GM/50 ML BAG IV ONE (12:00)
--- NOTE | 2017-03-07 14:48 | Progress Note ---
Assessment and Plan Right lower extremity cellulitis with rt great toe ulcer - We will follow blood culture, cont wound care - Pcont on empiric antibiotics for now with vanc and zosyn - Continue IV fluid hydration and monitor BP - Continue to trend lactate, will follow right foot xry result Atrial FIB - will cont home meds for rate control and anticoagulation HTN - cont to monitor - resume home meds as needed Dvt PX - on eliquis Subjective Date of service: 03/07/17 Interval history: pt seen and exAMINED s/p wound eval today no new complaints Objective - Exam Narrative Exam: GENERAL: well-developed and well-nourished WM lying on bed appeared to be in no discomfort. HEENT: Normocephalic. Atraumatic. No conjunctival congestion or icterus. Patient has moist mucous membranes. NECK: Supple. Trachea midline. CHEST/LUNGS: Clear to auscultated bilaterally, breathing nonlabored. No wheezes crackles or rhonchi. HEART/CARDIOVASCULAR: Regular in rate and rhythm. S1 and S2 positive. ABDOMEN: Abdomen is soft, nontender. Patient has normal bowel sounds. SKIN: There is no rash. Warm and dry. NEURO: No focal motor deficit. Follows command.Right leg chronic parathesias and numbness MUSCULOSKELETAL: right leg swelling, pain, redness and right big toe ulcer with purulent discharge Musculoskeletal: Integumentary: no rash, no pruritis EXTRIMITY: + edema on rt LE, no cyanosis or clubbing. PSYCH: Cooperative. - Constitutional Vitals: Vital Signs - 12hr 03/07/17 07:47 Temperature 97.8 F Pulse Rate 80 Respiratory 16 Rate Blood Pressure 125/75 O2 Sat by Pulse 95 Oximetry - Labs CBC & Chem 7: 03/06/17 10:26 03/06/17 10:27 Labs: Abnormal lab results 03/06/17 03/06/17 Range/Units 10:26 10:27 RDW 12.9 L (13.2-15.2) % Lymph % (Auto) 37.9 H (13.4-35.0) % [place] % (Auto) 13.2 H (0.0-7.3) % Creatinine 0.7 L (0.8-1.5) mg/dL
[2017-03-07] MEDS: VANCOMYCIN 2,000 MG in NACL 0.9% 500 ML 500 ML IV SCH (21:18)
--- NOTE | 2017-03-07 22:43 | XRay Report ---
FINAL REPORT PROCEDURE: XR FOOT 2V RT TECHNIQUE: Right foot, two views HISTORY: abscess COMPARISON: No prior studies are available for comparison. FINDINGS: Bandage material is seen at the great toe. There is dorsal soft tissue swelling. No radiopaque foreign body is seen. No fracture or joint dislocation is seen. No osseous erosions are identified. IMPRESSION: No acute osseous abnormality is seen. If there is concern for osteomyelitis, MRI could be obtained
[2017-03-08] MEDS: ELIQUIS PO SCH ×3 (02:34→21:19)
[2017-03-08] MEDS: CARDIZEM PO SCH ×5 (02:35→23:19)
[2017-03-08] MEDS: ZOSYN/NS 4.5GM/100ML 4.5 GM/100 ML VIAL IV SCH ×3 (05:42→21:20)
[2017-03-08 07:33] LABS: BUN/Creatinine Ratio 17; Blood Urea Nitrogen 12 mg/dL (9-20); Calcium 9.6 mg/dL (8.4-10.2); Hemolysis Index 23
[2017-03-08] MEDS: VANCOMYCIN 2,000 MG in NACL 0.9% 500 ML 500 ML IV SCH ×2 (11:31→21:20)
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
[2017-03-09] MEDS: CARDIZEM PO SCH ×2 (07:12→12:54)
[2017-03-09] MEDS: ZOSYN/NS 4.5GM/100ML 4.5 GM/100 ML VIAL IV SCH ×2 (07:13→13:28)
[2017-03-09] MEDS: ELIQUIS PO SCH (10:06)
--- NOTE | 2017-03-09 10:48 | Progress Note ---
Assessment and Plan Assessment: 1) Right lower extremity cellulitis with rt great toe ulcer CRP = 0.2 Hgb A1c 4.9 wound culture positive for proteus mirabilis 2) A-fib/HTN, stable last b/p 137/86 3) Peripheral neuropathy Plan: -refer to maxillofacial surgeon for wound debridement as an outpatient -elevate RLE -ok to D/C home with levaquin 750 mg po daily x [address] Marion will round on Friday 03/10 Thank you for the consult Dr. Jeremie Santana, MANAGER APPLE-C for Sylvia Castro MD Infectious Diseases Specialist [facility] ([facility]) M [phone] O [phone] Subjective Date of service: 03/09/17 Interval history: i feel much better and I don't have a fever, I want to go home Microbiology: Blood cultures 03/07 NGTD Respiratory cultures influenza negative 03/07 Current Antimicrobials: Vancomycin 03/07 Zosyn 03/07 Previous Antimicrobials: Objective - Exam Narrative Exam: GENERAL: well nourished in NAD HEENT: Normocephalic. Atraumatic. No conjunctival congestion or icterus. Patient has moist mucous membranes. NECK: Supple. Trachea midline. CHEST/LUNGS: Clear to auscultated bilaterally, breathing nonlabored. No wheezes crackles or rhonchi. HEART/CARDIOVASCULAR: RRR, no thrills ABDOMEN: Abdomen is soft, nontender, non distended SKIN: There is no rash. Warm and dry. Edema to RLE NEURO: Alert and oriented x 3 MUSCULOSKELETAL: right leg swelling, pain, redness and right big toe eschar wound about 50% Integumentary: no rash, no pruritis, right leg swelling, pain, redness and right big toe eschar wound about 50% PSYCH: Cooperative. - Constitutional Vitals: Vital Signs Temp Pulse Resp BP Pulse Ox 98.5 F 89 20 137/86 97 03/09/17 08:21 03/09/17 08:21 03/09/17 08:21 03/09/17 08:21 03/09/17 08:21 Temperature -Last 24 Hours Temperature 98.5 F Temperature 97.7 F Temperature 97.7 F Temperature 98.4 F - Labs CBC & Chem 7: 03/06/17 10:26 03/08/17 05:30
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
[2017-03-09] MEDS: VANCOMYCIN 2,000 MG in NACL 0.9% 500 ML 500 ML IV SCH (13:35)
[2017-03-09 16:00] VITALS: BP 121/89
--- NOTE | 2017-03-11 14:05 | Vascular Lab Report ---
Right Lower Extremity Venous Duplex Study: Reason for Exam: Cellulitis and edema. Comments on the Right: All veins visualized are freely compressible without evidence of internal echogenicity. Flow is spontaneous and phasic throughout. No evidence of acute or chronic thrombus is seen in any of the vessels visualized. Comments on the Left: A limited duplex study was done of the proximal veins of the left lower extremity. All veins visualized are freely compressible without evidence of internal echogenicity. Flow is spontaneous and phasic throughout. No evidence of acute or chronic thrombus is seen in any of the vessels visualized. Impression: No evidence of acute or chronic deep venous thrombosis in the right lower extremity.
--- NOTE | 2017-03-11 14:08 | Vascular Lab Report ---
LOWER EXTREMITY ARTERIAL DUPLEX: REASON FOR EXAM: Ulceration of the right great toe. COMMENTS ON THE RIGHT: Triphasic waveforms are seen proximally. Monophasic waveforms are seen distally. The superficial femoral artery appears to be stenotic or occluded distally. Plaque is noted in the distal superficial femoral artery. Findings are consistent with abnormal perfusion. Findings are not consistent with the ability to heal distal wounds. COMMENTS ON THE LEFT: A limited study was done. Triphasic waveforms are seen distally. Velocities are lower than expected. Plaque was not seen. Findings are consistent with diminished perfusion. Findings are inconsistent with the ability to heal distal wounds. IMPRESSION: RIGHT: The right superficial femoral artery appears to be severely stenotic or occluded with markedly reduced flow distally. LEFT:A limited study show significant arterial occlusive disease in the left lower extremity.
== END 2017-03-09 17:50 | disposition home or self-care (01) | DRG 603 ==
LOC: UNDOADMIN 10:02 → 3A 10:02
PROVIDERS: ADMIT Internal Medicine; ATTEND Internal Medicine
PROC: 3E0234Z Introduction of Serum, Toxoid and Vaccine into Muscle, Percutaneous Approach (ICD-10-PCS; principal; 2017-03-07)
DX: L03.115 Cellulitis of right lower limb (principal); I48.91 Unspecified atrial fibrillation; I10 Essential (primary) hypertension; L97.519 Non-pressure chronic ulcer of other part of right foot with unspecified severity; G62.9 Polyneuropathy, unspecified; Z79.01 Long term (current) use of anticoagulants; Z79.899 Other long term (current) drug therapy; Z23 Encounter for immunization
CPT/HCPCS: 36415; 80048; 80053; 80202; 81001; 82140; 83036; 85025; 86140; 87040; 87076; 87116; 87186; 90686; J0696; J2543; J3370; J7040

== ENCOUNTER 2017-03-13 13:04 | Outpatient (CLI) | payer BC ==
[2017-03-13] MEDS ORDERED: XYLOCAINE TOPICAL 4% TP ONE (14:00)
== END 2017-03-13 13:05 | disposition home or self-care (01) ==
LOC: WOUND 13:04
PROVIDERS: ATTEND Surgery
DX: L97.512 Non-pressure chronic ulcer of other part of right foot with fat layer exposed (principal); L89.612 Pressure ulcer of right heel, stage 2; I48.91 Unspecified atrial fibrillation; I10 Essential (primary) hypertension

== ENCOUNTER 2017-03-20 12:58 | Outpatient (CLI) | payer BC ==
[2017-03-20] MEDS ORDERED: XYLOCAINE TOPICAL 4% TP ONE (13:30)
== END 2017-03-20 12:59 | disposition home or self-care (01) ==
LOC: WOUND 12:58
PROVIDERS: ATTEND Surgery
DX: L97.512 Non-pressure chronic ulcer of other part of right foot with fat layer exposed (principal); L89.612 Pressure ulcer of right heel, stage 2; L89.893 Pressure ulcer of other site, stage 3; I48.91 Unspecified atrial fibrillation; I10 Essential (primary) hypertension

== ENCOUNTER 2017-03-27 13:24 | Outpatient (CLI) | payer BC ==
[2017-03-27] MEDS ORDERED: XYLOCAINE TOPICAL 4% TP ONE (13:34)
[2017-03-27] MEDS ORDERED: SILVER NITRATE TP ONE ×2 (13:57→15:37)
== END 2017-03-27 13:25 | disposition home or self-care (01) ==
LOC: WOUND 13:24
PROVIDERS: ATTEND Surgery
DX: L89.893 Pressure ulcer of other site, stage 3 (principal); L89.612 Pressure ulcer of right heel, stage 2; L97.512 Non-pressure chronic ulcer of other part of right foot with fat layer exposed; I48.91 Unspecified atrial fibrillation; I10 Essential (primary) hypertension

== ENCOUNTER 2017-04-03 12:58 | Outpatient (CLI) | payer BC ==
[2017-04-03] MEDS ORDERED: XYLOCAINE TOPICAL 4% TP ONE (13:33)
== END 2017-04-03 12:59 | disposition home or self-care (01) ==
LOC: WOUND 12:58
PROVIDERS: ATTEND Surgery
DX: L89.893 Pressure ulcer of other site, stage 3 (principal); L89.612 Pressure ulcer of right heel, stage 2; L97.512 Non-pressure chronic ulcer of other part of right foot with fat layer exposed; I48.91 Unspecified atrial fibrillation; I10 Essential (primary) hypertension

== ENCOUNTER 2017-04-10 13:00 | Outpatient (CLI) | payer BC | END 2017-04-10 13:01 | disposition home or self-care (01) | LOC: WOUND 13:00 | PROVIDERS: ATTEND Surgery | DX: L89.613 Pressure ulcer of right heel, stage 3 (principal); I48.91 Unspecified atrial fibrillation ==

== ENCOUNTER 2017-04-17 12:56 | Outpatient (CLI) | payer BC | END 2017-04-17 12:57 | disposition home or self-care (01) | LOC: WOUND 12:56 | PROVIDERS: ATTEND Surgery | DX: L89.893 Pressure ulcer of other site, stage 3 (principal); L97.512 Non-pressure chronic ulcer of other part of right foot with fat layer exposed; I48.91 Unspecified atrial fibrillation; I10 Essential (primary) hypertension ==

== ENCOUNTER 2017-05-03 13:07 | Outpatient (CLI) | payer BC | END 2017-05-03 13:08 | disposition home or self-care (01) | LOC: WOUND 13:07 | PROVIDERS: ATTEND Nurse Practitioner | DX: L89.893 Pressure ulcer of other site, stage 3 (principal); L89.613 Pressure ulcer of right heel, stage 3; L97.512 Non-pressure chronic ulcer of other part of right foot with fat layer exposed; I48.91 Unspecified atrial fibrillation; I10 Essential (primary) hypertension ==

== ENCOUNTER 2017-05-17 13:02 | Outpatient (CLI) | payer BC | END 2017-05-17 13:03 | disposition home or self-care (01) | LOC: WOUND 13:02 | PROVIDERS: ATTEND Nurse Practitioner | DX: L89.893 Pressure ulcer of other site, stage 3 (principal); L89.613 Pressure ulcer of right heel, stage 3; I48.91 Unspecified atrial fibrillation; I10 Essential (primary) hypertension ==

== ENCOUNTER 2017-05-24 13:06 | Outpatient (CLI) | payer BC | END 2017-05-24 13:07 | disposition home or self-care (01) | LOC: WOUND 13:06 | PROVIDERS: ATTEND Nurse Practitioner | DX: L89.613 Pressure ulcer of right heel, stage 3 (principal); L89.893 Pressure ulcer of other site, stage 3; I48.91 Unspecified atrial fibrillation; I10 Essential (primary) hypertension ==

== ENCOUNTER 2017-06-14 13:00 | Outpatient (CLI) | payer BC | END 2017-06-14 13:01 | disposition home or self-care (01) | LOC: WOUND 13:00 | PROVIDERS: ATTEND Nurse Practitioner | DX: L89.613 Pressure ulcer of right heel, stage 3 (principal); L89.893 Pressure ulcer of other site, stage 3; I48.91 Unspecified atrial fibrillation; I10 Essential (primary) hypertension; L84 Corns and callosities | CPT/HCPCS: 11055 ==

== ENCOUNTER 2017-07-12 13:29 | Outpatient (CLI) | payer BC | END 2017-07-12 13:30 | disposition home or self-care (01) | LOC: WOUND 13:29 | PROVIDERS: ATTEND Nurse Practitioner | DX: L89.893 Pressure ulcer of other site, stage 3 (principal); L89.613 Pressure ulcer of right heel, stage 3; I48.91 Unspecified atrial fibrillation; I10 Essential (primary) hypertension ==

== ENCOUNTER 2017-08-23 12:53 | Outpatient (CLI) | payer BC | END 2017-08-23 12:54 | disposition home or self-care (01) | LOC: WOUND 12:53 | PROVIDERS: ATTEND Surgery | DX: L89.613 Pressure ulcer of right heel, stage 3 (principal); L89.893 Pressure ulcer of other site, stage 3; I48.91 Unspecified atrial fibrillation; I10 Essential (primary) hypertension ==

== ENCOUNTER 2017-09-10 08:08 | Outpatient (CLI) | payer BC ==
[2017-09-10] MEDS ORDERED: SILVER NITRATE TP ONE ×2 (08:53→09:38)
== END 2017-09-10 08:09 | disposition home or self-care (01) ==
LOC: WOUND 08:08
PROVIDERS: ATTEND Surgery
DX: L89.613 Pressure ulcer of right heel, stage 3 (principal); L89.893 Pressure ulcer of other site, stage 3; I48.91 Unspecified atrial fibrillation; I10 Essential (primary) hypertension
CPT/HCPCS: 87075; 87076; 87116; 87186

== ENCOUNTER 2017-09-13 13:49 | Outpatient (CLI) | payer BC | END 2017-09-13 13:50 | disposition home or self-care (01) | LOC: WOUND 13:49 | PROVIDERS: ATTEND Surgery | DX: L89.613 Pressure ulcer of right heel, stage 3 (principal); L89.893 Pressure ulcer of other site, stage 3; I48.91 Unspecified atrial fibrillation; I10 Essential (primary) hypertension | CPT/HCPCS: 99213; G0463 ==

== ENCOUNTER 2017-09-19 07:25 | Day surgery (SDC) | payer BC ==
[~2017-09-19 07:25] MED LIST: ANCEF/STERILE WATER 2 GM/20 ML 2 GM/20 ML SYRINGE IV NR; NACL 0.9% 1000 ML 1,000 ML IV SCH
--- NOTE | 2017-09-19 08:30 | Anesthesia Consultation ---
Anesthesia Consult and Med Hx Date of service: 09/19/17 - Airway Anesthetic Teeth Evaluation: Poor (multiple missing ) ROM Head & Neck: Adequate Mental/Hyoid Distance: Adequate Mallampati Class: Class III Intubation Access Assessment: Possibly Difficult - Pulmonary Exam CTA: Yes - Cardiac Exam Anesthetic Concerns: irregular - Pre-Operative Health Status ASA Pre-Surgery Classification: ASA4 Proposed Anesthetic Plan: IV Sedation Nerve Block: Ank - Pre-Anesthesia Comment Pre-Anesthesia Comments: ELSA 05/2016 with thrombus noted left atrial appendage, EF 25-30%. Eloquis taken this morning - Pulmonary Hx Sleep Apnea: Yes (CPAP ) - Cardiovascular System Hx Hypertension: Yes Hx Angina: No Hx Cardia Arrhythmia: Yes (Afib)
--- NOTE | 2017-09-19 08:44 | Anesthesia Day of Surgery ---
Anesthesia Day of Surgery - Day of Surgery Patient Examined: Yes Patient H&P Reviewed: Yes Patient is NPO: Yes Beta Blockers: Yes
[2017-09-19 08:50] LABS: Hematocrit 39.4 % (35.5-45.6); Hemoglobin 13.5 gm/dl (11.8-15.2); Mean Corpuscular HGB Conc 34 % (32-34); Mean Corpuscular Hemoglobin 30 pg (28-32); Mean Corpuscular Volume 89 fl (84-94); Platelet Count 343 K/mm3 (140-440); Red Blood Count 4.45 M/mm3 (3.65-5.03); Red Cell Distribution Width 13.7 % (13.2-15.2)
[2017-09-19] MEDS ORDERED: VERSED IV NR (09:00)
[2017-09-19] MEDS ORDERED: PEPCID PO NR ×2 (09:00)
[2017-09-19] MEDS ORDERED: ANCEF/STERILE WATER 2 GM/20 ML 2 GM/20 ML SYRINGE IV NR (09:00)
[2017-09-19 09:03] LABS: INR 1.09 (0.87-1.13)
[2017-09-19] MEDS ORDERED: DIPRIVAN 10 MG/ML IV ONE (09:16)
[2017-09-19] MEDS ORDERED: VERSED ONE (09:16)
[2017-09-19] MEDS ORDERED: DILAUDID ONE (09:16)
[2017-09-19] MEDS ORDERED: XYLOCAINE MPF 2% ONE (09:19)
[2017-09-19 09:46] LABS: BUN/Creatinine Ratio 21; Blood Urea Nitrogen 15 mg/dL (9-20); Calcium 9.9 mg/dL (8.4-10.2); Hemolysis Index 3
[2017-09-19] MEDS ORDERED: NACL 0.9% IR ONE (10:15)
--- NOTE | 2017-09-19 10:18 | Post Anesthesia Evaluation ---
- Post Anesthesia Evaluation Patient Participated: Yes Airway Patent: Yes Stable Respiratory Function: Yes Temp > 96.8F: Yes Pain Manageable: Yes Adequeate Hydration: Yes Anesthesia Complications: No
--- NOTE | 2017-09-19 10:19 | Short Stay Summary ---
Short Stay Documentation Date of service: 09/19/17 - History H&P: obtained from office - Allergies and Medications Current Medications: Allergies No Known Allergies Allergy (Verified 05/02/16 11:21) Home Medications Medication Instructions Recorded Confirmed Last Taken Type Apixaban [Eliquis] 5 mg PO BID 04/27/16 09/19/17 09/19/17 06:00 History Aspirin [Aspirin EC] 325 mg PO DAILY 09/18/17 09/19/17 09/19/17 06:00 History Diltiazem HCl [Diltiazem ER] 180 mg PO DAILY 09/18/17 09/19/17 09/19/17 06:00 History Metoprolol [Lopressor TAB] 100 mg PO BID 09/18/17 09/19/17 09/19/17 06:00 History Sacubitril/Valsartan [Entresto 49 1 tab PO BID 09/18/17 09/19/17 09/19/17 06:00 History mg-51 mg Tablet] Spironolactone 25 mg PO DAILY 09/18/17 09/19/17 09/19/17 06:00 History Amox-Clav 250-125 mg Tablet 500 mg PO BID 09/19/17 09/19/17 09/19/17 06:00 History Active Medications Famotidine (Pepcid) 20 mg PO PREOP NR Stop: 09/19/17 12:00 Last Admin: 09/19/17 08:48 Dose: 20 mg Sodium Chloride (Nacl 0.9% 1000 Ml) 1,000 mls @ 100 mls/hr IV DIRECT IGGY Last Admin: 09/19/17 08:30 Dose: 100 mls/hr Midazolam HCl (Versed) 2 mg IV PREOP NR Stop: 09/19/17 23:59 Last Admin: 09/19/17 09:12 Dose: 2 mg - Physical exam General appearance: no acute distress, well-nourished HEENT: EOMI Lungs: Normal air movement Extremities: abnormal (necrotic right heel ulcer with foul smell) - Brief post op/procedure progress note Date of procedure: 09/19/17 (Dictation:[id number]) Pre-op diagnosis: infected, necrotic right heel ulcer Post-op diagnosis: same Procedure: debridement of right heel ulcer Anesthesia: MAC Findings: necrotic tissue going almost down to calcaneus Surgeon: JESS ENCARNACION Estimated blood loss: minimal (10cc) Pathology: list (tissue culture of necrotic tissue) Specimen disposition: to lab Condition: stable - Hospital course Hospital course: uneventful - Disposition Condition at discharge: Stable Disposition: - TO HOME OR SELFCARE Short Stay Discharge Plan Weight Bearing Status: Non-Weight Bearing (on right heel) Diet: regular Wound: keep clean and dry Additional Instructions: DO NOT PUT ANY WEIGHT ON HEEL KEEP WOUND CLEAN AND DRY KEEP APPOINTMENT FOR SUNDAY IN WOUND CARE CLINIC MAY HAVE REGULAR DIET CALL DR ENCARNACION FOR ALL QUESTIONS AND CONCERNS Follow up with: NASIM VIZCAINO MD [Primary Care Provider] - 7 Days [facility] [Outside[facility] - 3 Days (Has appt this Sunday - I will see him in Wound Care clinic) Forms: Post Sedation D/C Instructions
[2017-09-19 11:05] VITALS: BP 130/74
--- NOTE | 2017-09-19 18:00 | Operative Report ---
PREOPERATIVE DIAGNOSIS: Right heel ulcer with exposed fat layer. POSTOPERATIVE DIAGNOSIS: Right heel ulcer with exposed fat layer. PROCEDURE: Debridement of subcutaneous tissue, CPT CODE 35076. ATTENDING PHYSICIAN: Hector Teixeira MD ANESTHESIA: MAC. ESTIMATED BLOOD LOSS: Less than 10 mL. FLUIDS: 150 mL. FINDINGS: Necrotic foul smelling tissue in the right heel. Thick callus surrounding the wound, no obvious involvement of the underlying bone. There was still healthy subcutaneous tissue between the wound and the calcaneal bone. There were no tracks into the rest of the foot, no purulent fluid was identified. SPECIMEN: Tissue culture. DRAINS: None. COMPLICATIONS: None. DISPOSITION: Stable, transferred to Recovery Room. INDICATIONS: This is a 56-year-old male whom we have taken care of in the wound care clinic. When we last saw him, he had a very large amount of necrotic foul-smelling tissue that we were unable to adequately debride in the wound care clinic due to his anticoagulation status. Therefore, plans were made for OR debridement. Procedure, risks, benefits were explained to the patient. Risks included but were not limited to infection, bleeding, pain, injury to surrounding structures, possible need for further procedures in the future. The patient understood and consented. OPERATIVE NOTE: The patient was brought to the operating room and placed on the table in a lateral decubitus position. Pressure points were padded. Mild sedation was administered. Sterile prep and drape was performed. Timeout was called. Ancef had been given prior to start of the case. I began by sharply removing the surrounding callus tissue as well as the necrotic tissue. This was done with scissors and then later with electrocautery, so that we had good hemostasis. I debrided down to good subcutaneous healthy tissue, the surrounding tissue also appeared healthy. After we were done, most of the specimen was sent for tissue culture. We did have good bleeding in the surrounding tissue that we got under control with electrocautery. I monitored the wound for about 30 seconds and saw no evidence of bleeding. Once we were done, we had thoroughly washed out the wound. I then packed it with iodoform, placed fluffs, wrapped it with Kerlix and then Coban taking care not to wrap it too tight. The patient tolerated the procedure well. There were no complications. All counts were correct at the end of the case. JOB# [id number] BLOSSOM/FEROZ
== END 2017-09-19 10:45 | disposition home or self-care (01) ==
LOC: OR 07:25
PROVIDERS: ATTEND Surgery
DX: L97.412 Non-pressure chronic ulcer of right heel and midfoot with fat layer exposed (principal); L02.611 Cutaneous abscess of right foot; B96.89 Other specified bacterial agents as the cause of diseases classified elsewhere; I10 Essential (primary) hypertension; I48.91 Unspecified atrial fibrillation; G47.30 Sleep apnea, unspecified; Z79.01 Long term (current) use of anticoagulants; Z99.89 Dependence on other enabling machines and devices
CPT/HCPCS: 11042; 36415; 80048; 85027; 85610; 87076; 87116; 87186; 88305; J0690; J1170; J2250; J2704; J7030

== ENCOUNTER 2017-09-24 13:10 | Outpatient (CLI) | payer BC | END 2017-09-24 13:11 | disposition home or self-care (01) | LOC: WOUND 13:10 | PROVIDERS: ATTEND Surgery | DX: L89.613 Pressure ulcer of right heel, stage 3 (principal); L89.893 Pressure ulcer of other site, stage 3; I48.91 Unspecified atrial fibrillation; I10 Essential (primary) hypertension ==

== ENCOUNTER 2017-10-01 13:13 | Outpatient (CLI) | payer BC ==
[2017-10-01] MEDS ORDERED: XYLOCAINE TOPICAL 4% TP ONE ×2 (13:23→13:36)
== END 2017-10-01 13:14 | disposition home or self-care (01) ==
LOC: WOUND 13:13
PROVIDERS: ATTEND Surgery
DX: L89.613 Pressure ulcer of right heel, stage 3 (principal); I48.91 Unspecified atrial fibrillation; I10 Essential (primary) hypertension
CPT/HCPCS: 97605

== ENCOUNTER 2017-10-08 07:59 | Outpatient (CLI) | payer BC | END 2017-10-08 08:00 | disposition home or self-care (01) | LOC: WOUND 07:59 | PROVIDERS: ATTEND Surgery | DX: L89.613 Pressure ulcer of right heel, stage 3 (principal); I48.91 Unspecified atrial fibrillation; I10 Essential (primary) hypertension | CPT/HCPCS: 97605 ==

== ENCOUNTER 2017-10-11 13:21 | Outpatient (CLI) | payer BC | END 2017-10-11 13:22 | disposition home or self-care (01) | LOC: WOUND 13:21 | PROVIDERS: ATTEND Surgery | DX: L89.613 Pressure ulcer of right heel, stage 3 (principal); I48.91 Unspecified atrial fibrillation; I10 Essential (primary) hypertension | CPT/HCPCS: 97605 ==

== ENCOUNTER 2017-10-15 13:12 | Outpatient (CLI) | payer BC | END 2017-10-15 13:13 | disposition home or self-care (01) | LOC: WOUND 13:12 | PROVIDERS: ATTEND Surgery | DX: L89.613 Pressure ulcer of right heel, stage 3 (principal); I48.91 Unspecified atrial fibrillation; I10 Essential (primary) hypertension | CPT/HCPCS: 87075; 87076; 87116; 87186; 97605 ==

== ENCOUNTER 2017-10-18 12:58 | Outpatient (CLI) | payer BC ==
[2017-10-18] MEDS ORDERED: DAKIN'S FULL STRENGTH ONE (13:41)
[2017-10-18] MEDS ORDERED: DAKIN'S HALF STRENGTH TP SCH (22:00)
== END 2017-10-18 12:59 | disposition home or self-care (01) ==
LOC: WOUND 12:58
PROVIDERS: ATTEND Surgery
DX: L89.613 Pressure ulcer of right heel, stage 3 (principal); I48.91 Unspecified atrial fibrillation; I10 Essential (primary) hypertension
CPT/HCPCS: 99213; G0463

== ENCOUNTER 2017-10-22 12:48 | Outpatient (CLI) | payer BC ==
[2017-10-22] MEDS ORDERED: XYLOCAINE TOPICAL 4% TP ONE ×2 (13:05)
[2017-10-22] MEDS ORDERED: DAKIN'S FULL STRENGTH ONE (13:38)
[2017-11-01] MEDS ORDERED: XYLOCAINE TOPICAL 4% TP ONE (13:24)
[2017-11-06] MEDS ORDERED: XYLOCAINE TOPICAL 4% TP ONE (15:55)
[2017-11-06] MEDS ORDERED: DAKIN'S FULL STRENGTH TP ONE (16:11)
== END 2017-10-22 12:49 | disposition home or self-care (01) ==
LOC: WOUND 12:48
PROVIDERS: ATTEND Surgery
DX: L89.613 Pressure ulcer of right heel, stage 3 (principal); I48.91 Unspecified atrial fibrillation; I10 Essential (primary) hypertension

== ENCOUNTER 2017-10-30 13:11 | Outpatient (CLI) | payer BC ==
--- NOTE | 2017-10-30 18:42 | Magnetic Resonance Report ---
FINAL REPORT PROCEDURE: MR LE JOINT RT WO CON TECHNIQUE: Magnetic resonance imaging of the RIGHT foot was performed using standard pulse sequences. HISTORY: Idiopathic progressive neuropathy COMPARISON: Right foot radiograph 03/07/2017 FINDINGS: There is a soft tissue defect in the plantar aspect of the posterior foot. There is underlying high T2 and low T1 signal of the posterior calcaneus, extending to the posterior inferior cortex. Findings can be seen with osteomyelitis. No IV contrast was administered to evaluate for soft tissue abscess. There is mild surrounding soft tissue edema. There is subarticular marrow edema in the midfoot between the cuboid and lateral cuneiform, which could be degenerative or related to an inflammatory process. There is edema within the intrinsic musculature of the foot, which could be inflammatory. There is edema surrounding the flexor tendons within the foot, suggesting tenosynovitis. IMPRESSION: Findings are compatible with osteomyelitis of the posterior calcaneus. There is subarticular marrow edema at the articulation of the cuboid and lateral cuneiform which could be degenerative or related to inflammatory process. Tenosynovitis involving the flexor tendons within the foot.
== END 2017-10-30 13:12 | disposition home or self-care (01) ==
LOC: MRI 13:11
PROVIDERS: ATTEND Surgery
DX: M65.871 Other synovitis and tenosynovitis, right ankle and foot (principal); M86.8X7 Other osteomyelitis, ankle and foot; I11.0 Hypertensive heart disease with heart failure; I50.9 Heart failure, unspecified; E66.01 Morbid (severe) obesity due to excess calories; I48.91 Unspecified atrial fibrillation; M19.90 Unspecified osteoarthritis, unspecified site; E66.9 Obesity, unspecified; G62.9 Polyneuropathy, unspecified
CPT/HCPCS: 73721

== ENCOUNTER 2017-11-16 14:35 | Outpatient (CLI) | payer BC ==
[~2017-11-16 14:35] MED LIST changes: +ANCEF/STERILE WATER 2 GM/20 ML 0 GM/0 ML SYRINGE IV ONE; -ANCEF/STERILE WATER 2 GM/20 ML 2 GM/20 ML SYRINGE IV NR; +DAKIN'S HALF STRENGTH TP SCH; +DIPRIVAN 10 MG/ML IV ONE; +HEPARIN 10,000 UNITS/10 ML ONE; +HEPARIN/NS 5000 UNIT/500ML(CATH LAB) 0 ML IR ONE; -NACL 0.9% 1000 ML 1,000 ML IV SCH; +SUBLIMAZE ONE; +VERSED ONE; +XYLOCAINE 2% INFILTRATI ONE
== END 2017-11-16 14:36 | disposition home or self-care (01) ==
LOC: WOUND 14:35
PROVIDERS: ATTEND Surgery
DX: L89.613 Pressure ulcer of right heel, stage 3 (principal); I48.91 Unspecified atrial fibrillation; I10 Essential (primary) hypertension
CPT/HCPCS: 97605; A6260; J2704; J3010; J0690; J1644; J2250

== ENCOUNTER 2017-11-20 08:03 | Outpatient (CLI) | payer BC ==
[2017-11-20] MEDS ORDERED: XYLOCAINE TOPICAL 4% TP ONE ×2 (08:43→11:35)
== END 2017-11-20 08:04 | disposition home or self-care (01) ==
LOC: WOUND 08:03
PROVIDERS: ATTEND Surgery
DX: L89.613 Pressure ulcer of right heel, stage 3 (principal); I48.91 Unspecified atrial fibrillation; I10 Essential (primary) hypertension; M86.8X8 Other osteomyelitis, other site; G60.3 Idiopathic progressive neuropathy
CPT/HCPCS: 97605

== ENCOUNTER 2017-11-23 14:01 | Outpatient (CLI) | payer BC | END 2017-11-23 14:02 | disposition home or self-care (01) | LOC: WOUND 14:01 | PROVIDERS: ATTEND Surgery | DX: L89.613 Pressure ulcer of right heel, stage 3 (principal); I48.91 Unspecified atrial fibrillation; I10 Essential (primary) hypertension | CPT/HCPCS: 97605 ==

== ENCOUNTER 2017-11-27 08:55 | Outpatient (CLI) | payer BC | END 2017-11-27 08:56 | disposition home or self-care (01) | LOC: WOUND 08:55 | PROVIDERS: ATTEND Surgery | DX: L89.613 Pressure ulcer of right heel, stage 3 (principal); I48.91 Unspecified atrial fibrillation; I10 Essential (primary) hypertension; M86.8X8 Other osteomyelitis, other site | CPT/HCPCS: 97605 ==

== ENCOUNTER 2017-11-30 13:36 | Outpatient (CLI) | payer BC ==
[2017-11-30] MEDS ORDERED: XYLOCAINE TOPICAL 4% TP ONE ×2 (13:48→15:51)
== END 2017-11-30 13:37 | disposition home or self-care (01) ==
LOC: WOUND 13:36
PROVIDERS: ATTEND Surgery
DX: L89.613 Pressure ulcer of right heel, stage 3 (principal); I48.91 Unspecified atrial fibrillation; I10 Essential (primary) hypertension; M86.8X8 Other osteomyelitis, other site
CPT/HCPCS: 97605

== ENCOUNTER 2017-12-05 13:05 | Outpatient (CLI) | payer BC ==
[2017-12-05] MEDS ORDERED: SILVER NITRATE TP ONE ×2 (13:52→16:00)
[2017-12-05] MEDS ORDERED: XYLOCAINE TOPICAL 4% TP ONE (14:00)
== END 2017-12-05 13:06 | disposition home or self-care (01) ==
LOC: WOUND 13:05
PROVIDERS: ATTEND Surgery
DX: L89.613 Pressure ulcer of right heel, stage 3 (principal); I48.91 Unspecified atrial fibrillation; I10 Essential (primary) hypertension; M86.8X8 Other osteomyelitis, other site
CPT/HCPCS: 97605

== ENCOUNTER 2017-12-13 12:54 | Outpatient (CLI) | payer BC | END 2017-12-13 12:55 | disposition home or self-care (01) | LOC: WOUND 12:54 | PROVIDERS: ATTEND Surgery | DX: L97.416 Non-pressure chronic ulcer of right heel and midfoot with bone involvement without evidence of necrosis (principal); I48.91 Unspecified atrial fibrillation; I10 Essential (primary) hypertension; G60.3 Idiopathic progressive neuropathy; M86.8X8 Other osteomyelitis, other site | CPT/HCPCS: 99183; G0277 ==

== ENCOUNTER 2017-12-14 12:54 | Outpatient (CLI) | payer BC | END 2017-12-14 12:55 | disposition home or self-care (01) | LOC: WOUND 12:54 | PROVIDERS: ATTEND Surgery | DX: L97.416 Non-pressure chronic ulcer of right heel and midfoot with bone involvement without evidence of necrosis (principal); I48.91 Unspecified atrial fibrillation; I10 Essential (primary) hypertension; G60.3 Idiopathic progressive neuropathy; M86.8X8 Other osteomyelitis, other site | CPT/HCPCS: 97605; G0277; G0463; 99183; 99214 ==

== ENCOUNTER 2017-12-17 13:09 | Outpatient (CLI) | payer BC | END 2017-12-17 13:10 | disposition home or self-care (01) | LOC: WOUND 13:09 | PROVIDERS: ATTEND Surgery | DX: L97.416 Non-pressure chronic ulcer of right heel and midfoot with bone involvement without evidence of necrosis (principal); I48.91 Unspecified atrial fibrillation; I10 Essential (primary) hypertension; G60.3 Idiopathic progressive neuropathy; M86.8X8 Other osteomyelitis, other site | CPT/HCPCS: 99183; G0277 ==

== ENCOUNTER 2017-12-18 12:00 | Outpatient (CLI) | payer BC ==
[2017-12-18] MEDS ORDERED: SILVER NITRATE TP ONE (13:01)
[2017-12-20] MEDS ORDERED: SILVER NITRATE TP ONE (13:19)
== END 2017-12-18 12:01 | disposition home or self-care (01) ==
LOC: WOUND 12:00
PROVIDERS: ATTEND Surgery
DX: L97.416 Non-pressure chronic ulcer of right heel and midfoot with bone involvement without evidence of necrosis (principal); I48.91 Unspecified atrial fibrillation; I10 Essential (primary) hypertension; G60.3 Idiopathic progressive neuropathy; M86.8X8 Other osteomyelitis, other site
CPT/HCPCS: 11042; 11045; 97605; G0277; 17250; 99183

== ENCOUNTER 2017-12-19 13:07 | Outpatient (CLI) | payer BC | END 2017-12-19 13:08 | disposition home or self-care (01) | LOC: WOUND 13:07 | PROVIDERS: ATTEND Surgery | DX: L97.416 Non-pressure chronic ulcer of right heel and midfoot with bone involvement without evidence of necrosis (principal); I48.91 Unspecified atrial fibrillation; I10 Essential (primary) hypertension; G60.3 Idiopathic progressive neuropathy; M86.8X8 Other osteomyelitis, other site | CPT/HCPCS: 99183; G0277 ==

== ENCOUNTER 2018-03-05 09:23 | Outpatient (CLI) | payer BC ==
[2018-03-05] MEDS ORDERED: SILVER NITRATE TP ONE (09:45)
== END 2018-03-05 09:24 | disposition home or self-care (01) ==
LOC: WOUND 09:23
PROVIDERS: ATTEND Surgery
DX: L89.613 Pressure ulcer of right heel, stage 3 (principal); L97.416 Non-pressure chronic ulcer of right heel and midfoot with bone involvement without evidence of necrosis; I48.91 Unspecified atrial fibrillation; I10 Essential (primary) hypertension; G60.3 Idiopathic progressive neuropathy; M86.8X8 Other osteomyelitis, other site
CPT/HCPCS: 97605

== ENCOUNTER 2018-03-08 12:29 | Outpatient (CLI) | payer BC | END 2018-03-08 12:30 | disposition home or self-care (01) | LOC: WOUND 12:29 | PROVIDERS: ATTEND Surgery | DX: L89.613 Pressure ulcer of right heel, stage 3 (principal); L97.416 Non-pressure chronic ulcer of right heel and midfoot with bone involvement without evidence of necrosis; I48.91 Unspecified atrial fibrillation; I10 Essential (primary) hypertension; G60.3 Idiopathic progressive neuropathy; M86.8X8 Other osteomyelitis, other site | CPT/HCPCS: 97605 ==

== ENCOUNTER 2018-03-12 09:28 | Outpatient (CLI) | payer BC ==
[2018-03-12] MEDS ORDERED: XYLOCAINE TOPICAL 4% TP ONE (09:31)
[2018-03-12] MEDS ORDERED: SILVER NITRATE TP ONE (09:51)
== END 2018-03-12 09:29 | disposition home or self-care (01) ==
LOC: WOUND 09:28
PROVIDERS: ATTEND Surgery
DX: L89.613 Pressure ulcer of right heel, stage 3 (principal); L97.416 Non-pressure chronic ulcer of right heel and midfoot with bone involvement without evidence of necrosis; I48.91 Unspecified atrial fibrillation; I10 Essential (primary) hypertension; G60.3 Idiopathic progressive neuropathy; M86.8X8 Other osteomyelitis, other site
CPT/HCPCS: 97605

== ENCOUNTER 2018-03-15 13:30 | Outpatient (CLI) | payer BC | END 2018-03-15 13:31 | disposition home or self-care (01) | LOC: WOUND 13:30 | PROVIDERS: ATTEND Surgery | DX: L89.613 Pressure ulcer of right heel, stage 3 (principal); L84 Corns and callosities; G60.3 Idiopathic progressive neuropathy; M86.8X8 Other osteomyelitis, other site; I10 Essential (primary) hypertension; I48.91 Unspecified atrial fibrillation | CPT/HCPCS: 97605 ==

== ENCOUNTER 2018-03-19 09:24 | Outpatient (CLI) | payer BC ==
[2018-03-19] MEDS ORDERED: XYLOCAINE TOPICAL 4% TP ONE (09:36)
== END 2018-03-19 09:25 | disposition home or self-care (01) ==
LOC: WOUND 09:24
PROVIDERS: ATTEND Surgery
DX: L89.613 Pressure ulcer of right heel, stage 3 (principal); L84 Corns and callosities; G60.3 Idiopathic progressive neuropathy; M86.8X8 Other osteomyelitis, other site; I10 Essential (primary) hypertension; I48.91 Unspecified atrial fibrillation
CPT/HCPCS: 97605

== ENCOUNTER 2018-03-22 08:09 | Outpatient (CLI) | payer BC | END 2018-03-22 08:10 | disposition home or self-care (01) | LOC: WOUND 08:09 | PROVIDERS: ATTEND Surgery | DX: L89.613 Pressure ulcer of right heel, stage 3 (principal); L84 Corns and callosities; M86.8X8 Other osteomyelitis, other site; G60.3 Idiopathic progressive neuropathy; I10 Essential (primary) hypertension; I48.91 Unspecified atrial fibrillation | CPT/HCPCS: 97605 ==

== ENCOUNTER 2018-03-26 09:31 | Outpatient (CLI) | payer BC ==
[2018-03-26] MEDS ORDERED: SILVER NITRATE TP ONE (09:47)
== END 2018-03-26 09:32 | disposition home or self-care (01) ==
LOC: WOUND 09:31
PROVIDERS: ATTEND Surgery
DX: L89.613 Pressure ulcer of right heel, stage 3 (principal); L84 Corns and callosities; M86.8X8 Other osteomyelitis, other site; G60.3 Idiopathic progressive neuropathy; I10 Essential (primary) hypertension; I48.91 Unspecified atrial fibrillation
CPT/HCPCS: 97605

== ENCOUNTER 2018-03-28 13:11 | Outpatient (CLI) | payer BC | END 2018-03-28 13:12 | disposition home or self-care (01) | LOC: WOUND 13:11 | PROVIDERS: ATTEND Surgery | DX: L89.613 Pressure ulcer of right heel, stage 3 (principal); M86.8X7 Other osteomyelitis, ankle and foot; G60.3 Idiopathic progressive neuropathy; I48.91 Unspecified atrial fibrillation; I10 Essential (primary) hypertension | CPT/HCPCS: 99213; G0463 ==

== ENCOUNTER 2018-04-02 09:26 | Outpatient (CLI) | payer BC ==
[2018-04-02] MEDS ORDERED: SILVER NITRATE TP ONE (09:31)
[2018-04-02] MEDS ORDERED: XYLOCAINE TOPICAL 4% TP ONE (09:31)
[2018-04-02] MEDS ORDERED: AD OINTMENT TP PRN (10:00)
== END 2018-04-02 09:27 | disposition home or self-care (01) ==
LOC: WOUND 09:26
PROVIDERS: ATTEND Surgery
DX: L89.613 Pressure ulcer of right heel, stage 3 (principal); L84 Corns and callosities; G60.3 Idiopathic progressive neuropathy; M86.8X8 Other osteomyelitis, other site; I10 Essential (primary) hypertension; I48.91 Unspecified atrial fibrillation

== ENCOUNTER 2018-04-05 13:19 | Outpatient (CLI) | payer BC | END 2018-04-05 13:20 | disposition home or self-care (01) | LOC: WOUND 13:19 | PROVIDERS: ATTEND Surgery | DX: L89.613 Pressure ulcer of right heel, stage 3 (principal); L84 Corns and callosities; M86.8X8 Other osteomyelitis, other site; I10 Essential (primary) hypertension; I48.91 Unspecified atrial fibrillation; G60.3 Idiopathic progressive neuropathy | CPT/HCPCS: 99215; G0463 ==

== ENCOUNTER 2018-04-09 09:28 | Outpatient (CLI) | payer BC | END 2018-04-09 09:29 | disposition home or self-care (01) | LOC: WOUND 09:28 | PROVIDERS: ATTEND Surgery | DX: L89.613 Pressure ulcer of right heel, stage 3 (principal); L84 Corns and callosities; G60.3 Idiopathic progressive neuropathy; M86.8X8 Other osteomyelitis, other site; I10 Essential (primary) hypertension; I48.91 Unspecified atrial fibrillation ==

== ENCOUNTER 2018-04-26 09:23 | Outpatient (CLI) | payer BC ==
[2018-04-26] MEDS ORDERED: SILVER NITRATE TP ONE (09:57)
[2018-04-26] MEDS ORDERED: AD OINTMENT TP PRN (09:57)
== END 2018-04-26 09:24 | disposition home or self-care (01) ==
LOC: WOUND 09:23
PROVIDERS: ATTEND Surgery
DX: L89.613 Pressure ulcer of right heel, stage 3 (principal); L84 Corns and callosities; G60.3 Idiopathic progressive neuropathy; M86.8X8 Other osteomyelitis, other site; I10 Essential (primary) hypertension; I48.91 Unspecified atrial fibrillation
CPT/HCPCS: A6250

== ENCOUNTER 2018-05-03 09:27 | Outpatient (CLI) | payer BC | END 2018-05-03 09:28 | disposition home or self-care (01) | LOC: WOUND 09:27 | PROVIDERS: ATTEND Surgery | DX: L89.613 Pressure ulcer of right heel, stage 3 (principal); L84 Corns and callosities; I10 Essential (primary) hypertension; I48.91 Unspecified atrial fibrillation; M86.8X8 Other osteomyelitis, other site; G60.3 Idiopathic progressive neuropathy ==

== ENCOUNTER 2018-05-10 09:35 | Outpatient (CLI) | payer BC ==
[2018-05-10] MEDS ORDERED: SILVER NITRATE TP ONE (10:30)
== END 2018-05-10 09:36 | disposition home or self-care (01) ==
LOC: WOUND 09:35
PROVIDERS: ATTEND Surgery
DX: L89.613 Pressure ulcer of right heel, stage 3 (principal); L84 Corns and callosities; G60.3 Idiopathic progressive neuropathy; M86.8X8 Other osteomyelitis, other site; I10 Essential (primary) hypertension; I48.91 Unspecified atrial fibrillation

== ENCOUNTER 2018-05-17 09:17 | Outpatient (CLI) | payer BC | END 2018-05-17 09:18 | disposition home or self-care (01) | LOC: WOUND 09:17 | PROVIDERS: ATTEND Surgery | DX: L89.613 Pressure ulcer of right heel, stage 3 (principal); L84 Corns and callosities; G60.3 Idiopathic progressive neuropathy; M86.8X8 Other osteomyelitis, other site; I10 Essential (primary) hypertension; I48.91 Unspecified atrial fibrillation ==

== ENCOUNTER 2018-05-24 10:02 | Outpatient (CLI) | payer BC ==
[2018-05-24] MEDS ORDERED: SILVER NITRATE TP ONE (10:30)
== END 2018-05-24 10:03 | disposition home or self-care (01) ==
LOC: WOUND 10:02
PROVIDERS: ATTEND Surgery
DX: L89.613 Pressure ulcer of right heel, stage 3 (principal); L97.416 Non-pressure chronic ulcer of right heel and midfoot with bone involvement without evidence of necrosis; G60.3 Idiopathic progressive neuropathy; M86.8X8 Other osteomyelitis, other site; I10 Essential (primary) hypertension; I48.91 Unspecified atrial fibrillation
CPT/HCPCS: C5275

== ENCOUNTER 2018-05-31 09:42 | Outpatient (CLI) | payer BC | END 2018-05-31 09:43 | disposition home or self-care (01) | LOC: WOUND 09:42 | PROVIDERS: ATTEND Surgery | DX: L89.613 Pressure ulcer of right heel, stage 3 (principal); L84 Corns and callosities; I10 Essential (primary) hypertension; I48.91 Unspecified atrial fibrillation; G60.3 Idiopathic progressive neuropathy; M86.8X8 Other osteomyelitis, other site | CPT/HCPCS: 99215; G0463 ==

== ENCOUNTER 2018-06-03 07:41 | Outpatient (CLI) | payer BC ==
--- NOTE | 2018-06-03 09:15 | Vascular Lab Report ---
PROCEDURE: VL ARTERIAL DUPLEX LE RT TECHNIQUE: TECHNIQUE: Jones scale, color and pulsed Doppler ultrasound with color flow and spectral an alysis evaluation of right lower extremity arteries were performed. HISTORY: VASCULAR INSUFFICIENCY COMPARISONS: None currently available. FINDINGS: RIGHT EXTREMITY: EIA, SURGICAL MANAGER, proximal SFA, DFA, mid SFA, distal SFA, popliteal, SOAPING MACHINE BACK TENDER, SHWETA, and DPA velocities in cm/sec: 116, 96, 109, 97, 108, 79, 136, 78, 41, and 53. Monophasic flow below the popliteal and into the foot . Otherwise, triphasic flow throughout. LEFT EXTREMITY: SOAPING MACHINE BACK TENDER, SHWETA, and DPA velocities in cm/sec: 59, 39, and 30. Triphasic flow. IMPRESSION: * Hemodynamically significant stenosis between the popliteal and SOAPING MACHINE BACK TENDER, AP, and DP. This document is electronically signed by Pablo Carrillo MD., June 03 2018 09:13:53 AM ET
== END 2018-06-03 07:42 | disposition home or self-care (01) ==
LOC: VAS 07:41
PROVIDERS: ATTEND Surgery
DX: G60.3 Idiopathic progressive neuropathy (principal); L97.416 Non-pressure chronic ulcer of right heel and midfoot with bone involvement without evidence of necrosis; I11.0 Hypertensive heart disease with heart failure; I50.9 Heart failure, unspecified; E66.9 Obesity, unspecified
CPT/HCPCS: 36415; 83036

== ENCOUNTER 2018-06-07 09:24 | Outpatient (CLI) | payer BC ==
[2018-06-07] MEDS ORDERED: AD OINTMENT TP PRN (09:49)
[2018-06-07] MEDS ORDERED: SODIUM CHLORIDE FLUSH SYRINGE 10 ML IV PRN (10:24)
== END 2018-06-07 09:25 | disposition home or self-care (01) ==
LOC: WOUND 09:24
PROVIDERS: ATTEND Surgery
DX: L89.613 Pressure ulcer of right heel, stage 3 (principal); L84 Corns and callosities; M86.8X8 Other osteomyelitis, other site; G60.3 Idiopathic progressive neuropathy; I10 Essential (primary) hypertension; I48.91 Unspecified atrial fibrillation

== ENCOUNTER 2018-06-14 09:39 | Outpatient (CLI) | payer BC ==
[2018-06-15] MEDS ORDERED: AD OINTMENT TP SCH (10:00)
== END 2018-06-14 09:40 | disposition home or self-care (01) ==
LOC: WOUND 09:39
PROVIDERS: ATTEND Surgery
DX: L89.613 Pressure ulcer of right heel, stage 3 (principal); G60.3 Idiopathic progressive neuropathy; M86.8X8 Other osteomyelitis, other site; I10 Essential (primary) hypertension; I48.91 Unspecified atrial fibrillation
CPT/HCPCS: C5275

== ENCOUNTER 2018-06-21 09:13 | Outpatient (CLI) | payer BC | END 2018-06-21 09:14 | disposition home or self-care (01) | LOC: WOUND 09:13 | PROVIDERS: ATTEND Surgery | DX: L89.613 Pressure ulcer of right heel, stage 3 (principal); L84 Corns and callosities; G60.3 Idiopathic progressive neuropathy; M86.8X8 Other osteomyelitis, other site; I10 Essential (primary) hypertension; I48.91 Unspecified atrial fibrillation | CPT/HCPCS: 99213; G0463 ==

== ENCOUNTER 2018-06-28 09:14 | Outpatient (CLI) | payer BC ==
[2018-06-28] MEDS ORDERED: SILVER NITRATE TP ONE (10:10)
== END 2018-06-28 09:15 | disposition home or self-care (01) ==
LOC: WOUND 09:14
PROVIDERS: ATTEND Surgery
DX: L89.613 Pressure ulcer of right heel, stage 3 (principal); G60.3 Idiopathic progressive neuropathy; M86.8X8 Other osteomyelitis, other site; L84 Corns and callosities; I10 Essential (primary) hypertension; I48.91 Unspecified atrial fibrillation

== ENCOUNTER 2018-07-12 09:05 | Outpatient (CLI) | payer BC | END 2018-07-12 09:06 | disposition home or self-care (01) | LOC: WOUND 09:05 | PROVIDERS: ATTEND Surgery | DX: L89.613 Pressure ulcer of right heel, stage 3 (principal); G60.3 Idiopathic progressive neuropathy; M86.8X8 Other osteomyelitis, other site; L84 Corns and callosities; I10 Essential (primary) hypertension; I48.91 Unspecified atrial fibrillation | CPT/HCPCS: 99214; G0463 ==

== ENCOUNTER 2018-07-19 08:56 | Outpatient (CLI) | payer BC | END 2018-07-19 08:57 | disposition home or self-care (01) | LOC: WOUND 08:56 | PROVIDERS: ATTEND Surgery | DX: L89.613 Pressure ulcer of right heel, stage 3 (principal); L84 Corns and callosities; G60.3 Idiopathic progressive neuropathy; M86.8X8 Other osteomyelitis, other site; I10 Essential (primary) hypertension; I48.91 Unspecified atrial fibrillation ==

== ENCOUNTER 2018-08-09 09:15 | Outpatient (CLI) | payer BC ==
[2018-08-09] MEDS ORDERED: SILVER NITRATE TP ONE (10:00)
== END 2018-08-09 09:16 | disposition home or self-care (01) ==
LOC: WOUND 09:15
PROVIDERS: ATTEND Surgery
DX: L89.613 Pressure ulcer of right heel, stage 3 (principal); L97.416 Non-pressure chronic ulcer of right heel and midfoot with bone involvement without evidence of necrosis; L84 Corns and callosities; G60.3 Idiopathic progressive neuropathy; M86.8X8 Other osteomyelitis, other site; I10 Essential (primary) hypertension; I48.91 Unspecified atrial fibrillation

== ENCOUNTER 2018-08-16 09:07 | Outpatient (CLI) | payer BC ==
[2018-08-16] MEDS ORDERED: SILVER NITRATE TP ONE (10:00)
== END 2018-08-16 09:08 | disposition home or self-care (01) ==
LOC: WOUND 09:07
PROVIDERS: ATTEND Surgery
DX: L89.613 Pressure ulcer of right heel, stage 3 (principal); L97.416 Non-pressure chronic ulcer of right heel and midfoot with bone involvement without evidence of necrosis; L84 Corns and callosities; G60.3 Idiopathic progressive neuropathy; M86.8X8 Other osteomyelitis, other site; I10 Essential (primary) hypertension; I48.91 Unspecified atrial fibrillation

== ENCOUNTER 2018-08-23 09:39 | Outpatient (CLI) | payer BC ==
[2018-08-23] MEDS ORDERED: SILVER NITRATE TP ONE (09:53)
== END 2018-08-23 09:40 | disposition home or self-care (01) ==
LOC: WOUND 09:39
PROVIDERS: ATTEND Surgery
DX: L89.613 Pressure ulcer of right heel, stage 3 (principal); L84 Corns and callosities; G60.3 Idiopathic progressive neuropathy; M86.8X8 Other osteomyelitis, other site; I10 Essential (primary) hypertension; I48.91 Unspecified atrial fibrillation

== ENCOUNTER 2018-08-30 09:12 | Outpatient (CLI) | payer BC | END 2018-08-30 09:13 | disposition home or self-care (01) | LOC: WOUND 09:12 | PROVIDERS: ATTEND Surgery | DX: L89.613 Pressure ulcer of right heel, stage 3 (principal); L84 Corns and callosities; G60.3 Idiopathic progressive neuropathy; M86.8X8 Other osteomyelitis, other site; I10 Essential (primary) hypertension; I48.91 Unspecified atrial fibrillation ==

== ENCOUNTER 2018-09-06 09:07 | Outpatient (CLI) | payer BC | END 2018-09-06 09:08 | disposition home or self-care (01) | LOC: WOUND 09:07 | PROVIDERS: ATTEND Surgery | DX: L89.613 Pressure ulcer of right heel, stage 3 (principal); L84 Corns and callosities; G60.3 Idiopathic progressive neuropathy; M86.8X8 Other osteomyelitis, other site; I10 Essential (primary) hypertension; I48.91 Unspecified atrial fibrillation ==

== ENCOUNTER 2018-09-13 08:50 | Outpatient (CLI) | payer BC ==
[2018-09-13] MEDS ORDERED: SILVER NITRATE TP ONE (09:20)
== END 2018-09-13 08:51 | disposition home or self-care (01) ==
LOC: WOUND 08:50
PROVIDERS: ATTEND Surgery
DX: L89.613 Pressure ulcer of right heel, stage 3 (principal); L84 Corns and callosities; G60.3 Idiopathic progressive neuropathy; M86.8X8 Other osteomyelitis, other site; I10 Essential (primary) hypertension; I48.91 Unspecified atrial fibrillation

== ENCOUNTER 2018-09-27 09:21 | Outpatient (CLI) | payer BC ==
[2018-09-27] MEDS ORDERED: SILVER NITRATE TP ONE (10:00)
== END 2018-09-27 09:22 | disposition home or self-care (01) ==
LOC: WOUND 09:21
PROVIDERS: ATTEND Surgery
DX: L89.613 Pressure ulcer of right heel, stage 3 (principal); L84 Corns and callosities; G60.3 Idiopathic progressive neuropathy; M86.8X8 Other osteomyelitis, other site; I10 Essential (primary) hypertension; I48.91 Unspecified atrial fibrillation

== ENCOUNTER 2018-10-04 09:16 | Outpatient (CLI) | payer BC ==
[2018-10-04] MEDS ORDERED: SILVER NITRATE TP ONE (10:30)
== END 2018-10-04 09:17 | disposition home or self-care (01) ==
LOC: WOUND 09:16
PROVIDERS: ATTEND Surgery
DX: L89.613 Pressure ulcer of right heel, stage 3 (principal); L84 Corns and callosities; G60.3 Idiopathic progressive neuropathy; M86.8X8 Other osteomyelitis, other site; I10 Essential (primary) hypertension; I48.91 Unspecified atrial fibrillation

== ENCOUNTER 2018-10-11 09:18 | Outpatient (CLI) | payer BC | END 2018-10-11 09:19 | disposition home or self-care (01) | LOC: WOUND 09:18 | PROVIDERS: ATTEND Surgery | DX: L89.613 Pressure ulcer of right heel, stage 3 (principal); L84 Corns and callosities; G60.3 Idiopathic progressive neuropathy; M86.8X8 Other osteomyelitis, other site; I10 Essential (primary) hypertension; I48.91 Unspecified atrial fibrillation ==

== ENCOUNTER 2018-10-18 09:02 | Outpatient (CLI) | payer BC | END 2018-10-18 09:03 | disposition home or self-care (01) | LOC: WOUND 09:02 | PROVIDERS: ATTEND Surgery | DX: L89.613 Pressure ulcer of right heel, stage 3 (principal); L84 Corns and callosities; G60.3 Idiopathic progressive neuropathy; I10 Essential (primary) hypertension; I48.91 Unspecified atrial fibrillation; M86.8X8 Other osteomyelitis, other site | CPT/HCPCS: 99214; G0463 ==

== ENCOUNTER 2018-11-01 09:26 | Outpatient (CLI) | payer BC ==
[2018-11-01] MEDS ORDERED: XYLOCAINE TOPICAL 4% TP ONE (09:36)
== END 2018-11-01 09:27 | disposition home or self-care (01) ==
LOC: WOUND 09:26
PROVIDERS: ATTEND Surgery
DX: L89.613 Pressure ulcer of right heel, stage 3 (principal); L84 Corns and callosities; G60.3 Idiopathic progressive neuropathy; I10 Essential (primary) hypertension; I48.91 Unspecified atrial fibrillation; M86.8X8 Other osteomyelitis, other site

== ENCOUNTER 2018-11-08 09:22 | Outpatient (CLI) | payer BC ==
[2018-11-08] MEDS ORDERED: SILVER NITRATE TP ONE (10:30)
== END 2018-11-08 09:23 | disposition home or self-care (01) ==
LOC: WOUND 09:22
PROVIDERS: ATTEND Surgery
DX: L89.613 Pressure ulcer of right heel, stage 3 (principal); L84 Corns and callosities; G60.3 Idiopathic progressive neuropathy; I10 Essential (primary) hypertension; I48.91 Unspecified atrial fibrillation; M86.8X8 Other osteomyelitis, other site

== ENCOUNTER 2018-12-06 08:39 | Outpatient (CLI) | payer BC ==
[2018-12-06] MEDS ORDERED: SILVER NITRATE APPLICATOR 1 EA TP ONE (10:00)
== END 2018-12-06 08:40 | disposition home or self-care (01) ==
LOC: WOUND 08:39
PROVIDERS: ATTEND Surgery
DX: L97.416 Non-pressure chronic ulcer of right heel and midfoot with bone involvement without evidence of necrosis (principal); G60.3 Idiopathic progressive neuropathy; M86.8X8 Other osteomyelitis, other site; L84 Corns and callosities; I48.91 Unspecified atrial fibrillation; I10 Essential (primary) hypertension

== ENCOUNTER 2018-12-13 08:20 | Outpatient (CLI) | payer BC ==
[2018-12-13] MEDS ORDERED: SILVER NITRATE TP ONE (08:45)
== END 2018-12-13 08:21 | disposition home or self-care (01) ==
LOC: WOUND 08:20
PROVIDERS: ATTEND Surgery
DX: L89.613 Pressure ulcer of right heel, stage 3 (principal); L84 Corns and callosities; I10 Essential (primary) hypertension; I48.91 Unspecified atrial fibrillation; G60.3 Idiopathic progressive neuropathy; M86.8X8 Other osteomyelitis, other site

== ENCOUNTER 2018-12-20 07:57 | Outpatient (CLI) | payer BC | END 2018-12-20 07:58 | disposition home or self-care (01) | LOC: WOUND 07:57 | PROVIDERS: ATTEND Surgery | DX: L89.613 Pressure ulcer of right heel, stage 3 (principal); L84 Corns and callosities; I10 Essential (primary) hypertension; I48.91 Unspecified atrial fibrillation; G60.3 Idiopathic progressive neuropathy; M86.8X8 Other osteomyelitis, other site ==

== ENCOUNTER 2018-12-27 09:12 | Outpatient (CLI) | payer BC | END 2018-12-27 09:13 | disposition home or self-care (01) | LOC: WOUND 09:12 | PROVIDERS: ATTEND Surgery | DX: L89.613 Pressure ulcer of right heel, stage 3 (principal); L84 Corns and callosities; I10 Essential (primary) hypertension; I48.91 Unspecified atrial fibrillation; G60.3 Idiopathic progressive neuropathy; M86.8X8 Other osteomyelitis, other site | CPT/HCPCS: 15275; Q4110 ==

== ENCOUNTER 2019-01-03 08:48 | Outpatient (CLI) | payer BC | END 2019-01-03 08:49 | disposition home or self-care (01) | LOC: WOUND 08:48 | PROVIDERS: ATTEND Surgery | DX: L89.613 Pressure ulcer of right heel, stage 3 (principal); L84 Corns and callosities; I10 Essential (primary) hypertension; I48.91 Unspecified atrial fibrillation; G60.3 Idiopathic progressive neuropathy; M86.8X8 Other osteomyelitis, other site | CPT/HCPCS: 99214; G0463 ==

== ENCOUNTER 2019-01-10 08:21 | Outpatient (CLI) | payer BC | END 2019-01-10 08:22 | disposition home or self-care (01) | LOC: WOUND 08:21 | PROVIDERS: ATTEND Surgery | DX: L89.613 Pressure ulcer of right heel, stage 3 (principal); L84 Corns and callosities; I10 Essential (primary) hypertension; I48.91 Unspecified atrial fibrillation; G60.3 Idiopathic progressive neuropathy; M86.8X8 Other osteomyelitis, other site ==

== ENCOUNTER 2019-01-17 08:40 | Outpatient (CLI) | payer BC | END 2019-01-17 08:41 | disposition home or self-care (01) | LOC: WOUND 08:40 | PROVIDERS: ATTEND Surgery | DX: L89.613 Pressure ulcer of right heel, stage 3 (principal); L84 Corns and callosities; I10 Essential (primary) hypertension; I48.91 Unspecified atrial fibrillation; G60.3 Idiopathic progressive neuropathy; M86.8X8 Other osteomyelitis, other site | CPT/HCPCS: 15275; Q4110 ==

== ENCOUNTER 2019-01-31 08:59 | Outpatient (CLI) | payer BC | END 2019-01-31 09:00 | disposition home or self-care (01) | LOC: WOUND 08:59 | PROVIDERS: ATTEND Surgery | DX: L89.613 Pressure ulcer of right heel, stage 3 (principal); L84 Corns and callosities; I10 Essential (primary) hypertension; I48.91 Unspecified atrial fibrillation; M86.8X8 Other osteomyelitis, other site; G60.3 Idiopathic progressive neuropathy ==

== ENCOUNTER 2019-02-07 08:48 | Outpatient (CLI) | payer BC | END 2019-02-07 08:49 | disposition home or self-care (01) | LOC: WOUND 08:48 | PROVIDERS: ATTEND Surgery | DX: L89.613 Pressure ulcer of right heel, stage 3 (principal); L84 Corns and callosities; I10 Essential (primary) hypertension; I48.91 Unspecified atrial fibrillation; M86.8X8 Other osteomyelitis, other site; G60.3 Idiopathic progressive neuropathy ==

== ENCOUNTER 2019-02-14 08:53 | Outpatient (CLI) | payer BC | END 2019-02-14 08:54 | disposition home or self-care (01) | LOC: WOUND 08:53 | PROVIDERS: ATTEND Surgery | DX: L89.613 Pressure ulcer of right heel, stage 3 (principal); L84 Corns and callosities; I10 Essential (primary) hypertension; I48.91 Unspecified atrial fibrillation; M86.8X8 Other osteomyelitis, other site; G60.3 Idiopathic progressive neuropathy ==

== ENCOUNTER 2019-02-21 08:06 | Outpatient (CLI) | payer BC | END 2019-02-21 08:07 | disposition home or self-care (01) | LOC: WOUND 08:06 | PROVIDERS: ATTEND Surgery | DX: L89.613 Pressure ulcer of right heel, stage 3 (principal); L84 Corns and callosities; I10 Essential (primary) hypertension; I48.91 Unspecified atrial fibrillation; G60.3 Idiopathic progressive neuropathy; M86.8X8 Other osteomyelitis, other site ==

== ENCOUNTER 2019-03-07 08:02 | Outpatient (CLI) | payer BC | END 2019-03-07 08:03 | disposition home or self-care (01) | LOC: WOUND 08:02 | PROVIDERS: ATTEND Surgery | DX: L89.613 Pressure ulcer of right heel, stage 3 (principal); L84 Corns and callosities; I10 Essential (primary) hypertension; I48.91 Unspecified atrial fibrillation; G60.3 Idiopathic progressive neuropathy; M86.8X8 Other osteomyelitis, other site ==

== ENCOUNTER 2019-03-14 08:51 | Outpatient (CLI) | payer BC | END 2019-03-14 08:52 | disposition home or self-care (01) | LOC: WOUND 08:51 | PROVIDERS: ATTEND Surgery | DX: L89.613 Pressure ulcer of right heel, stage 3 (principal); L84 Corns and callosities; I10 Essential (primary) hypertension; I48.91 Unspecified atrial fibrillation; G60.3 Idiopathic progressive neuropathy; M86.8X8 Other osteomyelitis, other site ==

== ENCOUNTER 2019-03-21 08:37 | Outpatient (CLI) | payer BC | END 2019-03-21 08:38 | disposition home or self-care (01) | LOC: WOUND 08:37 | PROVIDERS: ATTEND Surgery | DX: L89.613 Pressure ulcer of right heel, stage 3 (principal); L84 Corns and callosities; I10 Essential (primary) hypertension; I48.91 Unspecified atrial fibrillation; G60.3 Idiopathic progressive neuropathy; M86.8X8 Other osteomyelitis, other site ==

== ENCOUNTER 2019-03-28 09:34 | Outpatient (CLI) | payer BC | END 2019-03-28 09:35 | disposition home or self-care (01) | LOC: WOUND 09:34 | PROVIDERS: ATTEND Surgery | DX: L89.613 Pressure ulcer of right heel, stage 3 (principal); L84 Corns and callosities; I10 Essential (primary) hypertension; I48.91 Unspecified atrial fibrillation; G60.3 Idiopathic progressive neuropathy; M86.8X8 Other osteomyelitis, other site | CPT/HCPCS: 99213; G0463 ==